=== PATIENT | male | born 1945 | race Caucasian/White ===

== ENCOUNTER 2017-09-02 19:25 | Inpatient (IN) | payer OTHER ==
[~2017-09-02] VITALS: Ht 185.4 cm; Wt 118.4 kg
[2017-09-02 19:25] VITALS: BP 142/73
[~2017-09-02 19:25] MED LIST: APAP650 PO; ASPIR 8181 MG PO; ASPIRIN325; CALCIUM 500 +1 EAC5 PO; CARDIZEM60 MG PO; CIPRO500 M1 PO; COUMADIN 5 MG TA5 M1 PO; FLUOXETINE20 MG/5 M1 PO; HYTRIN 5 M5 MG/1 CAP PO; JEVITY1000 M1 PO; LASIX 20 MG TAB20 MG PO; LINZESS145 MCG PO; LISINOPRIL40 MG; LISINOPRIL5 MG PO; LOPRESSOR100 M1 PO; METFORMIN HCL500 MG PO; MICONAZOLE 324 GM TOP; NEXIUM40 MG PO; NIVEA192 GM TP; PLAVIX 75 MG TA75 M1 PO; PROVIGIL 200 M200 M1 PO; SENOKOT-S1 TA1 PO; TOPROL XL100 MG; TOPROL XL100 MG PO; TOPROL XL50 MG; TUBERSOL1 ML/1 VIA ID; VITAMIN D400 UNI4
[2017-09-02 19:53] LABS: URINE BILIRUBIN NEGATIVE (Negative); URINE BLOOD 3+ (Negative); URINE CLARITY CLOUDY; URINE GLUCOSE-RANDOM NEGATIVE (Negative); URINE KETONES NEGATIVE (Negative); URINE PROTEIN 2+ (Negative); URINE UROBILINOGEN 0.2 E.U./dl (0.2-1.0)
[2017-09-02 20:08] LABS: URINE COLOR YELLOW; URINE LEUKOCYTES-REFLEX 2+ (Negative); URINE NITRITE-REFLEX POSITIVE (Negative)
[2017-09-02 20:13] LABS: ABSOLUTE EOSINOPHILS 0.3 thou/uL (0.0-0.7); ABSOLUTE MONOCYTES 0.8 thou/uL (0.0-1.2); ABSOLUTE NEUTROPHILS 6.8 thou/uL (1.6-8.1); BASOPHILS 0.5 %; EOSINOPHILS 3.1 %; HEMATOCRIT 41.3 % (42.0-52.0); HEMOGLOBIN 13.8 gm/dL (14.0-18.0); LYMPHOCYTES 10.8 %; MCHC 33.4 g/dL (28.0-37.0); MCV 92.6 fL (80.0-100.0); MONOCYTES 9.1 %; MPV 7.6 fl. (7.2-11.1); NUCLEATED RBCS 0 /100WBC; PLATELET COUNT* 180 thou/uL (150-400); POLYS 76.5 %; RBC 4.46 mil/uL (4.50-6.00); RDW-CV 14.6 % (10.5-14.5); WBC 8.9 thou/uL (4.0-11.0)
[2017-09-02 20:19] LABS: SQUAMOUS 0-3 Few /LPF (0-3)
[2017-09-02 20:20] LABS: CASTS None Seen /LPF (None Seen); MUCUS 4-6 Moderate strn/LPF (None Seen); WBC CLUMPS Few (None Seen)
[2017-09-02 20:21] LABS: AMORPHOUS PHOSPHATES Moderate /LPF (None Seen); TRIPLE PHOSPHATE CRYSTALS >10 Many /LPF (None Seen)
[2017-09-02 20:24] LABS: INR 1.1; PROTIME 10.7 Seconds (9.20-11.50)
[2017-09-02 20:30] LABS: ANION GAP 5 mmol/L (7-16); BUN 15 mg/dL (7-18); CALCIUM 8.7 mg/dL (8.5-10.1); CHLORIDE 105 mmol/L (98-107); CO2 31 mmol/L (21-32); GLUCOSE 94 mg/dL (70-99); POTASSIUM 4.4 mmol/L (3.5-5.1); SODIUM 141 mmol/L (136-145)
[2017-09-02 20:41] LABS: ALBUMIN 3.2 g/dL (3.4-5.0); ALKALINE PHOSPHATASE 119 U/L (46-116); LIPASE 153 U/L (73-393); NT-PRO BRAIN NAT PEPTIDE 907 pg/mL (<300); SGOT 16 U/L (15-37); SGPT 15 U/L (30-65); TOTAL BILIRUBIN 0.4 mg/dL (<0.1-1.0); TOTAL PROTEIN 7.5 g/dL (6.4-8.2); TROPONIN-I LEVEL <0.06 ng/mL (<0.06)
[2017-09-02 22:00] VITALS: BP 139/82
[2017-09-02 22:35] VITALS: BP 141/54
[2017-09-02] MEDS ORDERED: PROTONIX40 M1 PO (23:41)
[2017-09-02] MEDS ORDERED: TYLENOL EXTRA500 MG PO (23:45)
[2017-09-02] MEDS ORDERED: ZYRTEC10 M5 PO (23:45)
[2017-09-02] MEDS ORDERED: LIORESAL 10 MG10 MG PO (23:46)
[2017-09-02] MEDS ORDERED: ELIQUIS5 MG PO (23:46)
[2017-09-02] MEDS ORDERED: VITAMIN C500 M1 PO (23:47)
[2017-09-02] MEDS ORDERED: NEURONTIN 300300 M1 PO (23:47)
[2017-09-02] MEDS ORDERED: CRANBERRY500 M2 PO (23:48)
[2017-09-03 04:11] VITALS: BP 117/77
[2017-09-03 05:26] LABS: HEMATOCRIT 38.3 % (42.0-52.0); HEMOGLOBIN 12.5 gm/dL (14.0-18.0); MCH 30.3 pg (26.0-34.0); MCHC 32.7 g/dL (28.0-37.0); MCV 92.9 fL (80.0-100.0); MPV 7.8 fl. (7.2-11.1); RBC 4.12 mil/uL (4.50-6.00); RDW-CV 14.6 % (10.5-14.5); WBC 7.5 thou/uL (4.0-11.0)
[2017-09-03 05:40] LABS: CALCIUM 8.8 mg/dL (8.5-10.1); CREATININE 0.8 mg/dL (0.6-1.3); MAGNESIUM 1.8 mg/dL (1.8-2.4); POTASSIUM 4.1 mmol/L (3.5-5.1)
[2017-09-03 08:00] VITALS: BP 130/58
[2017-09-03 11:56] VITALS: BP 116/63
--- NOTE | 2017-09-03 12:22 | EKG ---
[place] [address] ELECTROCARDIOGRAM REPORT Name: ALFONZO MAR Room: [address] ADM IN M.R.#: [id number] Admission: 09/02/17 Attend Phys: Fareed Staley, Discharge: Date of : 43 Report #: [id number] THIS REPORT FOR: //name// [facility] ED Test Date: 2017-09-02 Test Time: 19:33:58 Pat Name: ALFONZO MAR Department: Room: [facility] Gender: M Data Processing Manager: KRISTINE : 1945 Requested By: Liudmila Aguiar Order Number: [id number] MD: Michel Webber Measurements Intervals [place] Rate: 64 P: ID: QRS: -24 QRSD: 96 T: 23 QT: 443 QTc: 457 Interpretive Statements Atrial fibrillation Borderline left axis deviation Nonspecific T abnormalities, anterior leads Compared to ECG 04/30/2016 13:35:05 Prolonged QT interval no longer present Electronically Signed On 09-03-2017 12:21:57 [employer] OBSERV[employer] by Michel Webber [email or web address] <ELECTRONICALLY SIGNED> By: Michel Webber MD, [facility] 09/03/17 1221 [id number] Michel Webber MD, [facility] /EPI
[2017-09-03 16:00] VITALS: BP 109/71
[2017-09-03 16:57] LABS: INR 1.2; PROTIME 11.3 Seconds (9.20-11.50)
[2017-09-03 20:00] VITALS: BP 127/70
[2017-09-04] VITALS (7 sets, daily range): BP systolic 91–156; BP diastolic 58–95
[2017-09-04 05:16] LABS: HEMATOCRIT 36.9 % (42.0-52.0); HEMOGLOBIN 12.2 gm/dL (14.0-18.0); MCH 30.8 pg (26.0-34.0); MCHC 33.1 g/dL (28.0-37.0); MPV 7.7 fl. (7.2-11.1); RBC 3.97 mil/uL (4.50-6.00); RDW-CV 14.8 % (10.5-14.5); WBC 6.3 thou/uL (4.0-11.0)
[2017-09-04 05:29] LABS: INR 1.2; PROTIME 11.2 Seconds (9.20-11.50)
[2017-09-04 05:47] LABS: CALCIUM 8.7 mg/dL (8.5-10.1); CREATININE 0.9 mg/dL (0.6-1.3); MAGNESIUM 1.8 mg/dL (1.8-2.4); POTASSIUM 4.4 mmol/L (3.5-5.1)
[2017-09-05] VITALS (7 sets, daily range): BP systolic 111–159; BP diastolic 64–87
[2017-09-05 04:36] LABS: INR 1.2; PROTIME 11.4 Seconds (9.20-11.50)
[2017-09-05] MEDS ORDERED: CEFUROXIME250 MG PO (15:14)
== END 2017-09-05 17:45 | disposition home health service (06) | DRG 871 ==
LOC: M.ERS 19:25 → M.TBA-ER 21:01 → M.2W 21:01
PROVIDERS: Emergency Medicine; ADMIT Family Medicine
DX: A41.9 Sepsis, unspecified organism (principal); G93.41 Metabolic encephalopathy; N39.0 Urinary tract infection, site not specified; I10 Essential (primary) hypertension; I25.10 Atherosclerotic heart disease of native coronary artery without angina pectoris; I48.91 Unspecified atrial fibrillation; K21.9 Gastro-esophageal reflux disease without esophagitis; G83.9 Paralytic syndrome, unspecified; Z86.73 Personal history of transient ischemic attack (TIA), and cerebral infarction without residual deficits; Z88.8 Allergy status to other drugs, medicaments and biological substances; Z91.040 Latex allergy status; Z83.49 Family history of other endocrine, nutritional and metabolic diseases; Z79.899 Other long term (current) drug therapy

== ENCOUNTER 2017-09-13 12:16 | Inpatient (IN) | payer OTHER ==
[~2017-09-13] VITALS: Ht 182.9 cm; Wt 113.4 kg
[~2017-09-13 12:16] MED LIST changes: +CEFUROXIME250 MG PO; +CRANBERRY500 M2 PO; +ELIQUIS5 MG PO; +LIORESAL 10 MG10 MG PO; +NEURONTIN 300300 M1 PO; +PROTONIX40 M1 PO; +TYLENOL EXTRA500 MG PO; +VITAMIN C500 M1 PO; +ZYRTEC10 M5 PO
[2017-09-13 12:48] LABS: ABSOLUTE EOSINOPHILS 0.3 thou/uL (0.0-0.7); ABSOLUTE MONOCYTES 0.7 thou/uL (0.0-1.2); ABSOLUTE NEUTROPHILS 4.5 thou/uL (1.6-8.1); BASOPHILS 0.5 %; HEMATOCRIT 38.6 % (42.0-52.0); HEMOGLOBIN 12.7 gm/dL (14.0-18.0); LYMPHOCYTES 14.9 %; MCH 30.7 pg (26.0-34.0); MONOCYTES 11.3 %; MPV 7.7 fl. (7.2-11.1); NUCLEATED RBCS 0 /100WBC; PLATELET COUNT* 187 thou/uL (150-400); POLYS 69.3 %; RBC 4.15 mil/uL (4.50-6.00); RDW-CV 15.1 % (10.5-14.5); WBC 6.5 thou/uL (4.0-11.0)
[2017-09-13 12:54] LABS: URINE BILIRUBIN NEGATIVE (Negative); URINE BLOOD 3+ (Negative); URINE CLARITY SL CLOUDY; URINE COLOR YELLOW; URINE GLUCOSE-RANDOM TRACE (Negative); URINE KETONES NEGATIVE (Negative); URINE PROTEIN 3+ (Negative)
[2017-09-13 12:55] LABS: URINE LEUKOCYTES-REFLEX 3+ (Negative); URINE NITRITE-REFLEX POSITIVE (Negative)
[2017-09-13 12:57] LABS: ANION GAP 1 mmol/L (7-16); BUN 13 mg/dL (7-18); CALCIUM 9.3 mg/dL (8.5-10.1); CHLORIDE 106 mmol/L (98-107); CO2 34 mmol/L (21-32); CREATININE 0.8 mg/dL (0.6-1.3); GLUCOSE 79 mg/dL (70-99); SODIUM 141 mmol/L (136-145)
[2017-09-13 13:00] LABS: CASTS None Seen /LPF (None Seen); MUCUS None Seen strn/LPF (None Seen); SQUAMOUS 0-3 Few /LPF (0-3); URINE WBC-REFLEX >25 Many /HPF (0-5)
[2017-09-13 13:01] LABS: CRYSTALS None Seen /LPF (None Seen)
[2017-09-13 13:04] LABS: ALBUMIN 3.1 g/dL (3.4-5.0); ALKALINE PHOSPHATASE 109 U/L (46-116); LIPASE 131 U/L (73-393); SGOT 27 U/L (15-37); SGPT 14 U/L (30-65); TOTAL BILIRUBIN 0.6 mg/dL (<0.1-1.0); TROPONIN-I LEVEL <0.06 ng/mL (<0.06)
[2017-09-13 13:05] LABS: POTASSIUM 5.7 mmol/L (3.5-5.1)
[2017-09-13 16:23] VITALS: BP 135/97
--- NOTE | 2017-09-13 19:43 | NUR ---
PATIENT A&OX1-3, UNABLE TO FULLY ASSESS ORIENTATION PATIENT IS UNABLE TO VERBALIZE. PATIENT RESPONDS WELL WHEN ASKED YES OR NO QUESTIONS. COMUNICATES VERBALY MOSTLY WITH MAONING OR DIRECT ANSWERS. PATIENT WAS ADM TO FLOOR AT 1630 REPORT TAKEN FROM GEOR[place]IA CASIANO IN ER. AGREE WITH ASSESSMENT, DOCUMENTED AND COMPLETED. ON ROOM AIR, IV LEFT HAND, FLUIDS INFUSSING. SUPRAPUBIC CATHETER DRAINING WELL, NICE OUTPUT. C/O GENERALIZED PAIN, RELIEF WITH MEDICATION. NO OTHER CONCERNS AT THIS TIME. APPROPRIATE AND COOPORATIVE WITH CARE.
[2017-09-13 20:15] VITALS: BP 109/71
--- NOTE | 2017-09-14 05:26 | NUR ---
PT IS ABLE TO COMMUNICATE HIS NEEDS TO STAFF WITH MINOR DIFFICULTY; HE HAS SOME EXPRESIVE APHASIA FROM A PREVIOUS CVA AND CAN BE A LITTLE HARD TO UNDERSTAND AT TIMES; HE DOES BEST WITH "YES OR NO" TYPE QUESTIONS. HE HAS DENIED THE NEED FOR PAIN MEDICATION UP TO THIS TIME. SUPRAPUBIC CATHETER IS PATENT. UROLOGY CONSULT JILLIAN.
[2017-09-14 08:08] LABS: HEMATOCRIT 36.1 % (42.0-52.0); HEMOGLOBIN 11.8 gm/dL (14.0-18.0); MCH 30.6 pg (26.0-34.0); MCHC 32.8 g/dL (28.0-37.0); MCV 93.3 fL (80.0-100.0); MPV 7.6 fl. (7.2-11.1); RBC 3.87 mil/uL (4.50-6.00); RDW-CV 15.2 % (10.5-14.5); WBC 6.5 thou/uL (4.0-11.0)
[2017-09-14 08:19] VITALS: BP 110/70
[2017-09-14 08:20] LABS: CALCIUM 8.8 mg/dL (8.5-10.1); CREATININE 0.9 mg/dL (0.6-1.3); MAGNESIUM 1.7 mg/dL (1.8-2.4)
[2017-09-14 08:21] LABS: POTASSIUM 4.2 mmol/L (3.5-5.1)
[2017-09-14 13:04] VITALS: BP 117/95
[2017-09-14 16:35] VITALS: BP 119/63
--- NOTE | 2017-09-14 16:42 | NUR ---
SW met with pt to complete initial assessment, introduce self, and SW role. Pt lives at home alone with dtr support. Pt did not express any needs at this time. SW to continue to follow to assist with safe dc planning.
[2017-09-14 20:00] VITALS: BP 115/55
--- NOTE | 2017-09-14 20:23 | NUR ---
ASSUMED CARES OF PT AT 0700. PT IN BED ASLEEP, BED IN LOW AND LOCKED POSITION, CALL BUTTON AND PERSONAL ITEMS IN PT REACH. FALL PRECAUTIONS IN PLACE. PT A&O X3, EXPRESSIVE APHASIA R/T PAST CVA, RIGHT SIDED WEAKNESS, CHRONIC AFIB, VSS ON RA, LUNG SOUNDS DIMINISHED/SHALLOW/DISTANT OCC. WHEEZE. SP CATH IN PLACE, ORANGE TINTED CLEAR URINE. PT USES CALL BUTTON APPROPRIATELY. OCC. BLADDER SPASMS VERY PAINFUL, MEDICATION ORDERED NEEDED FOR SPASMS. +2 EDEMA LE, FLOAT ON PILLOWS. PT APPROPRIATE IN ANSWERING YES/NO QUESTIONS, ACCURATE. IV IN LEFT HAND/WRIST/22 GAUGE PATENT TO FLUIDS/FLUSH. CRUSH MEDS IN CHOCOLATE PUDDING, SMALL BITES, THIN LIQUIDS OK'D. UROLOGY CONSULTED. SP CATH CHANGED PER UROLOGY REQUEST 18 LITHU[place]IAN. CLEAR YELLOW URINE NOTICED. HOURLY ROUNDING AND Q2 TURNS COMPLETED. PT FEED ASSIST. AFEBRILE, PT DENIES PAIN. PT PROGRESSING TOWARDS GOAL. NURSING STUDENTS GAVE BED BATH TODAY. PRESENTLY SLEEPING IN BED, REPORT TO LOAF COUNTER FOR CONTINUED CARES.
[2017-09-14] MEDS ORDERED: B & O SUPPRETT1 EAC1 RECTAL (21:51)
[2017-09-15 00:27] VITALS: BP 123/62
[2017-09-15 04:36] LABS: ABSOLUTE EOSINOPHILS 0.3 thou/uL (0.0-0.7); ABSOLUTE LYMPHOCYTES 1.1 thou/uL (0.8-5.3); ABSOLUTE MONOCYTES 0.7 thou/uL (0.0-1.2); ABSOLUTE NEUTROPHILS 3.9 thou/uL (1.6-8.1); BASOPHILS 0.5 %; EOSINOPHILS 4.7 %; HEMATOCRIT 36.6 % (42.0-52.0); HEMOGLOBIN 11.9 gm/dL (14.0-18.0); MCHC 32.6 g/dL (28.0-37.0); MCV 95.1 fL (80.0-100.0); MONOCYTES 11.1 %; MPV 7.7 fl. (7.2-11.1); NUCLEATED RBCS 0 /100WBC; PLATELET COUNT* 154 thou/uL (150-400); POLYS 65.7 %; RBC 3.85 mil/uL (4.50-6.00); RDW-CV 15.6 % (10.5-14.5); WBC 5.9 thou/uL (4.0-11.0)
[2017-09-15 04:48] LABS: ALBUMIN 2.7 g/dL (3.4-5.0); CALCIUM 8.6 mg/dL (8.5-10.1); CREATININE 0.9 mg/dL (0.6-1.3); TOTAL BILIRUBIN 0.5 mg/dL (<0.1-1.0); TOTAL PROTEIN 6.1 g/dL (6.4-8.2)
--- NOTE | 2017-09-15 05:19 | NUR ---
PT SLEPT SOUNDLY DURING THE NIGHT, SUPRAPUBIC CATH IN PLACE, PLEASANT, IV ANTIBIOTICS GIVEN, PT TURNED, PRN BLADDER SPASM MEDICATION GIVEN FOR BLADDER PAIN, CALL LIGHT IN REACH, BED ALARM ON FOR SAFETY, WILL CONTINUE TO MONITOR
[2017-09-15 07:47] VITALS: BP 131/83
[2017-09-15 08:00] VITALS: BP 131/83
--- NOTE | 2017-09-15 09:52 | NUR ---
SW called pt dtr Mag and clarified that yes, pt does in fact live with pt at home...SW had previously gathered that pt lived alone now but that is incorrect. Pt lives at home with and pt dtr assists in pt care. Pt dtr explained that pt will receive a bigger wc soon (since pt gained weight after no longer on tube feeding and eating regular diet) and pt also has a noelle lift at home. Pt/family may need assist in coordinating wc van home preference [facility] at dc. SW to continue to follow to assist with safe dc planning.
--- NOTE | 2017-09-15 11:17 | NUR ---
ASSUMED CARES. ASSESSMENT PEFORMED AND DOCUMENTED. PT IS ALERT AND ABLE TO RESPOND TO YES NO QUESTIONS. OTHER SPEECH IS DIFFICULT TO UNDERSTAND, THIS IS PT NORMAL. DENIES PAIN, DENIES NEEDS. SUPRAPUBIC CATHETER DD YELLOW. FALL PRECUATIONS IN PLACE. IV ABX RUNNING. CALL LIGHT IN REACH AND BED IN LOWEST AND LOCKED POSITION. WILL CONTINUE WITH PLAN OF CARE
[2017-09-15 14:21] VITALS: BP 134/86
[2017-09-15 16:10] VITALS: BP 127/69
--- NOTE | 2017-09-15 18:05 | NUR ---
ASSUMED CARE OF PT AT APPROXIMATELY 1645. REPORT RECEIVED FROM [place]. FAMILY AT BEDSIDE WITH PT THROUGHOUT AFTERNOON. PT GIVEN PO CARDIZEM AND IV ZOSYN. DENIES ANY PAIN OR SHORTNESS OF BREATH. ASPHASIA NOTED. ON RA SAT UPPER 90'S. PT REQUIRES ASSIST WITH MEALS. MEDICAL SURGICAL STATUS. MEDICATIONS PER OCT. PT REPOSITIONED EVERY 2 HOURS FOR COMFORT. SUPRAPUBIC CATHETER TO DEPENDENT DRAINAGE. HOURLY ROUNDING OBSERVED. BED IN LOW POSITION. BED ALARM IN PLACE. FALL PRECAUTIONS IN PLACE. CALL LIGHT WITHIN REACH. WILL CONTINUE PLAN OF CARE.
[2017-09-15 20:10] VITALS: BP 136/78
[2017-09-16] VITALS: BP 149/86
--- NOTE | 2017-09-16 05:19 | NUR ---
PT SLEPT SOUNDLY DURING THE NIGHT, IV ANTIBIOTICS GIVEN, PT TURNED, HEELS OFF OF BED, RIGHT ARM ON PILLOW, SUPRAPUBIC CATH IN PLACE, PLEASANT, TOOK MEDS IN PUDDING, CALL LIGHT IN REACH, BED ALARM ON FOR SAFETY, WILL CONTINUE TO MONITOR
[2017-09-16 09:00] VITALS: BP 136/80
--- NOTE | 2017-09-16 09:39 | NUR ---
If Pt discharges to home over the weekend, family normally uses [facility], please confirm with that they wish to use [facility], and contact [facility] to arrange dc transportation [phone]
[2017-09-16 12:25] VITALS: BP 140/66
[2017-09-16 15:56] VITALS: BP 141/90
--- NOTE | 2017-09-16 17:33 | NUR ---
PATIENT HAS BEEN A/O THIS SHIFT, NOTED TO HAVE APHASIA FROM PREVIOUS CVA. PATIENT TURNED EVERY 2 HOURS AND HEELS ELEVATED. PATIENT WITH SUPRAPUBIC CATHETER IN PLACE, DRAINING YELLOW URINE. CATHETER CARE GIVEN THIS SHIFT. PATIENT TOLERATING DIET. TAKES PILLS CRUSHED IN PUDDING. VITALS STABLE ON ROOM AIR. URINE CULTURE RESULTED BACK AND PHYSICIAN NOTIFIED. PATIENT PLACED IN CONTACT ISOLATION FOR ESBL. PICC NURSE HERE THIS AFTERNOON, UNABLE TO PLACE PICC LINE. FAMILY UPDATED. HOURLY ROUNDING COMPLETED THIS SHIFT. CALL LIGHT WITHIN REACH. WILL CONTINUE WITH PLAN OF CARE.
--- NOTE | 2017-09-16 18:51 | NUR ---
CONSULTED TO PLACE PICC PER DR VEGAS ORDER. CONSENT OBTAINED FROM FAMILY MEMBERS AT BEDSIDE. RISK FOR INFECTION WELL DVT EXPLAINED TO FAMILY. PT ASSESSED WITH ULTRASOUND AND EDGAR CEPHALIC FOUND TO BE WIDELY PATENT. LINE TRIMMED TO 45 CM AND PLACED PER HOSPITAL POLICY. UNABLE TO DROP LINE INTO POSITION, SECOND ATTEMPT ON LEFT SIDE. LINE TRIMMED TO 50 CM AND PLACED WITH 3CM EXT, CXR TO CONFIRM PLACEMENT, AWAITING RESULTS.
[2017-09-16 20:30] VITALS: BP 134/71
--- NOTE | 2017-09-17 05:30 | NUR ---
PT SLEPT ON AND OFF THROUGH NIGHT. ASSESSMENT DOCUMENTED. MEDS GIVEN PER E-MAR. PICC PATENT. PT HAD NO REPORTS OF PAIN. PT REPOSITIONED THROUGH NIGHT. PILLS CRUSHED AND GIVEN WITH PUDDING. ISOLATION MAINTAINED. NO CONCERNS AT THIS TIME.
[2017-09-17 08:00] VITALS: BP 139/76
[2017-09-17 16:34] VITALS: BP 132/78
--- NOTE | 2017-09-17 19:21 | NUR ---
PATIENT HAS BEEN ALERT TO PERSON THIS SHIFT, APHASIC. ABLE TO ANSWER YES/NO QUESTIONS. IV TO LEFT HAND DC'D. DOUBLE LUMEN PICC LINE IN PLACE TO LEFT UPPER ARM. CONTINUES ON IV ANTIBIOTICS. MEDS CRUSHED IN PUDDING AND TOLERATING. ASSISTED WITH MEALS. TURNED EVERY 2 HOURS AND HEELS ELEVATED. CM CONSULTED FOR IV ANTIBIOTICS AT HOME. SUPRAPUBIC CATH IN PLACE, DRAINING YELLOW URINE. REMAINS IN CONTACT ISOLATION FOR ESBL IN URINE. HOURLY ROUNDING COMPLETED. CALL LIGHT WITHIN REACH. WILL CONTINUE WITH PLAN OF CARE.
[2017-09-17 20:30] VITALS: BP 129/77
--- NOTE | 2017-09-18 05:13 | NUR ---
PT SLEPT MOST OF SHIFT. ASSESSMENT DOCUMENTED. MEDS GIVEN PER E-MAR, CRUSHED IN PUDDING. PICC LINE PATENT. PT REPOSITIONED THROUGH NIGHT. CATHETER DRAINING. NO CONCERS AT THIS TIME.
[2017-09-18 10:00] VITALS: BP 143/87
[2017-09-18] MEDS ORDERED: MEROPENEM500 MG IV (14:09)
[2017-09-18 14:21] VITALS: BP 134/86
[2017-09-18 16:11] VITALS: BP 140/96
[2017-09-18] MEDS ORDERED: INVANZ1 GM IVPB (16:21)
--- NOTE | 2017-09-18 16:31 | NUR ---
ASSUMED CARES OF PT AT 0700. PT IN BED, BED IN LOW AND LOCKED POSITION, BED ALARM ON FOR PT SAFETY. FALL PRECAUTIONS IN PLACE. CALL BUTTON AND PERSONAL ITEMS IN PT REACH. PT A&O X3, EXPRESSIVE APHASIA R/T PAST CVA, RIGHT SIDED WEAKNESS, BEDREST, Q2 TURN, EDEMA ON RIGHT SIDE/HAND AND FOOT. FEET FLOATED WITH PILLOWS BILATERALLY. HRRR PER AUSCULTATION, VSS ON RA, SUPRAPUBIC CATH PATENT WITH CLEAR YELLOW URINE PRESENT. PICC LINE IN LEFT UE PATENT TO FLUIDS/FLUSH AND BLOOD DRAW. PT ANSWER YES/NO QUESTIONS ACCURATELY, OCC. VERBALIZES BIRTHDAY AND NAME PARTIALLY. TAKES MEDS CRUSHED IN CHOCOLATE PUDDING WELL, THIN LIQUIDS WELL TAKEN. PT PROGRESSING TOWARDS GOAL. PT CLEARED FOR D/C HOME TODAY WITH HOME HEALTH. CASE MANAGEMENT SCHEDULING HOME HEALTH CARES. WILL CONTINUE TO MONITOR PT. PREPARING FOR DISCHARGE.
--- NOTE | 2017-09-18 16:40 | NUR ---
[facility] called and faxed [facility] referral and IV abx information; [facility] spoke with Mariam ph [phone] and fax [phone]. Mariam checked benefits and accepted referral and confirmed that they will deliver medicine to pt [facility]. [facility]Y faxed referral, final orders, med list to pt preference of [facility] and [facility] called to confirm of acceptance and nurse to visit pt tomorrow. C[facility]Y discussed with pt dtr and SW to arrange transportation home.
[2017-09-18 16:56] VITALS: BP 134/86
[2017-09-18 18:20] VITALS: BP 134/86
--- NOTE | 2017-09-18 20:11 | NUR ---
PT CLEARED FOR DISCHARGE VIA TRANSPORT/CART. PT VSS ON DISCHARGE, DISCHARGE EDUCATION COMPLETED, STROKE EDUCATION COMPLETED. DAUGHTER SIGNED FOR PT ALL DISCHARGE FORMS. PT GOING HOME WITH HOME HEALTH FOR FURTHER IV ABT TREATMENT. PT ALERT, SMILING AT DISCHARGE WHICH WAS COMPLETED AT 1820 WITH DAUGHTER AT SIDE. ALL OF PT BELONGINGS PACKED, ROOM CHECKED, DAUGHTER CARRIED BELONGINGS WITH HER FOLLOWING TRANSPORT.
== END 2017-09-18 18:20 | disposition home health service (06) | DRG 698 ==
LOC: M.ERS 12:16 → M.TBA-ER 14:45 → M.3W 14:45
PROVIDERS: Emergency Medicine; Internal Medicine; ADMIT Internal Medicine
PROC: 02HV33Z Insertion of Infusion Device into Superior Vena Cava, Percutaneous Approach (ICD-10-PCS; principal; 2017-09-16)
PROC: B548ZZA Ultrasonography of Superior Vena Cava, Guidance (ICD-10-PCS; principal; 2017-09-16)
DX: T83.511A Infection and inflammatory reaction due to indwelling urethral catheter, initial encounter (principal); J18.9 Pneumonia, unspecified organism; E44.1 Mild protein-calorie malnutrition; I69.351 Hemiplegia and hemiparesis following cerebral infarction affecting right dominant side; Q60.0 Renal agenesis, unilateral; N13.30 Unspecified hydronephrosis; J98.11 Atelectasis; N40.0 Benign prostatic hyperplasia without lower urinary tract symptoms; N32.3 Diverticulum of bladder; N32.0 Bladder-neck obstruction; I48.91 Unspecified atrial fibrillation; I10 Essential (primary) hypertension; E87.5 Hyperkalemia; N21.0 Calculus in bladder; N30.90 Cystitis, unspecified without hematuria; B96.20 Unspecified Escherichia coli [E. coli] as the cause of diseases classified elsewhere; Z16.12 Extended spectrum beta lactamase (ESBL) resistance; B96.1 Klebsiella pneumoniae [K. pneumoniae] as the cause of diseases classified elsewhere; Z16.24 Resistance to multiple antibiotics; Y84.6 Urinary catheterization as the cause of abnormal reaction of the patient, or of later complication, without mention of misadventure at the time of the procedure; Z68.33 Body mass index [BMI] 33.0-33.9, adult; Y92.89 Other specified places as the place of occurrence of the external cause; I69.320 Aphasia following cerebral infarction; Z79.01 Long term (current) use of anticoagulants; Z79.899 Other long term (current) drug therapy; Z88.8 Allergy status to other drugs, medicaments and biological substances; Z91.040 Latex allergy status

== ENCOUNTER 2017-11-14 23:25 | Inpatient (IN) | payer OTHER ==
[~2017-11-14] VITALS: Ht 185.4 cm; Wt 117.9 kg
[~2017-11-14 23:25] MED LIST changes: +B & O SUPPRETT1 EAC1 RECTAL; +INVANZ1 GM IVPB; +MEROPENEM500 MG IV
[2017-11-14 23:26] VITALS: BP 103/67
[2017-11-15 00:27] LABS: ABSOLUTE LYMPHOCYTES 1.5 thou/uL (0.8-5.3); BASOPHILS 0.3 %; HEMOGLOBIN 11.4 gm/dL (14.0-18.0); MCV 88.5 fL (80.0-100.0); NUCLEATED RBCS 0 /100WBC; PLATELET COUNT* 185 thou/uL (150-400)
[2017-11-15 00:40] LABS: ABSOLUTE EOSINOPHILS 0.1 thou/uL (0.0-0.7); ABSOLUTE MONOCYTES 1.5 thou/uL (0.0-1.2); ABSOLUTE NEUTROPHILS 11.9 thou/uL (1.6-8.1); EOSINOPHILS 0.9 %; HEMATOCRIT 35.5 % (42.0-52.0); MCH 28.4 pg (26.0-34.0); MCHC 32.1 g/dL (28.0-37.0); MONOCYTES 9.9 %; MPV 7.8 fl. (7.2-11.1); POLYS 78.9 %; RBC 4.01 mil/uL (4.50-6.00); RDW-CV 15.4 % (10.5-14.5); WBC 15.1 thou/uL (4.0-11.0)
[2017-11-15 00:48] LABS: URINE BLOOD 2+ (Negative); URINE CLARITY CLOUDY; URINE COLOR YELLOW; URINE GLUCOSE-RANDOM NEGATIVE (Negative); URINE KETONES NEGATIVE (Negative); URINE NITRITE-REFLEX NEGATIVE (Negative); URINE PROTEIN 1+ (Negative); URINE SPECIFIC GRAVITY <= 1.005 (1.005-1.030); URINE UROBILINOGEN 0.2 E.U./dl (0.2-1.0)
[2017-11-15 00:49] LABS: URINE BILIRUBIN 1+ (Negative); URINE LEUKOCYTES-REFLEX 2+ (Negative)
[2017-11-15 00:49] LABS: ANION GAP 6 mmol/L (7-16); BUN 13 mg/dL (7-18); CALCIUM 8.8 mg/dL (8.5-10.1); CHLORIDE 106 mmol/L (98-107); CO2 27 mmol/L (21-32); CREATININE 0.9 mg/dL (0.6-1.3); GLUCOSE 102 mg/dL (70-99); POTASSIUM 4.1 mmol/L (3.5-5.1); SODIUM 139 mmol/L (136-145)
[2017-11-15 00:52] LABS: ALBUMIN 2.6 g/dL (3.4-5.0); ALKALINE PHOSPHATASE 114 U/L (46-116); SGOT 11 U/L (15-37); SGPT 12 U/L (30-65); TOTAL BILIRUBIN 0.7 mg/dL (<0.1-1.0); TOTAL PROTEIN 6.4 g/dL (6.4-8.2); TROPONIN-I LEVEL <0.06 ng/mL (<0.06)
[2017-11-15] MEDS ORDERED: CETIRIZINE HCL10 MG (00:56)
[2017-11-15 01:18] LABS: CASTS None Seen /LPF (None Seen); SQUAMOUS NONE SEEN /LPF (0-3)
[2017-11-15 01:19] LABS: BACTERIA-REFLEX >30 Many /HPF (None Seen); CALCIUM OXALATE 0-3 Few /LPF (None Seen); URINE RBC 3-10 Few /HPF (0-2); URINE WBC-REFLEX 6-15 Few /HPF (0-5)
[2017-11-15 01:20] LABS: TRIPLE PHOSPHATE CRYSTALS 4-10 Moderate /LPF (None Seen)
--- NOTE | 2017-11-15 01:41 | NUR ---
REPORT GIVEN TO FLOOR NURSE.
[2017-11-15 01:47] VITALS: BP 113/77
[2017-11-15 02:01] LABS: ICTOTEST (BILI CONFIRMATORY) Negative (Negative)
[2017-11-15 02:30] VITALS: BP 92/62
[2017-11-15] MEDS ORDERED: CLARITIN10 MG PO (02:42)
[2017-11-15] MEDS ORDERED: LOPRESSOR100 M1 PO (02:43)
--- NOTE | 2017-11-15 04:27 | NUR ---
PT ADMIT TO 230 AT 0230. ALERT EXPRESIVE APHASIA WITH R SIDED WEAKNESS FROM PREVIOUS CVA. SUPRA PUBIC CATH IN PLACE DRAINING CLOUDY YELLOW. TURN Q 2 HRS. PT SOILED UPON ARRIVEL TO FLOOR. NS AT 100MLS HR TO L HAND 22. PT MED SURG STATUS. WILL CONTINUE TO MONITOR.
[2017-11-15 08:00] VITALS: BP 103/60
[2017-11-15] MEDS ORDERED: LEVSIN0.125 MG SUBLING (08:00)
--- NOTE | 2017-11-15 10:16 | EKG ---
[place] [address] ELECTROCARDIOGRAM REPORT Name: ALFONZO MAR Room: [address] ADM IN .R.#: [id number] Admission: 11/15/17 Attend Phys: Lillie Lockwood Discharge: Date of : 43 Report #: [id number] THIS REPORT FOR: //name// [facility] ED Test Date: 2017-11-14 Test Time: 23:31:58 Pat Name: ALFONZO MAR Department: Room: [facility] Gender: M Guitar Repairer: ETHEL Brennan : 1945 Requested By: Girish Keyes Order Number: [id number] MD: Michel Webber Measurements Intervals [place] Rate: 99 P: [place]: QRS: 100 QRSD: 112 T: 145 QT: 338 QTc: 434 Interpretive Statements Atrial fibrillation Abnormal T, consider ischemia, anterior leads Compared to ECG 09/02/2017 19:33:58 T-wave abnormality still present Electronically Signed On 11-15-2017 10:16:13 CDT by Michel Webber [email or web address] <ELECTRONICALLY SIGNED> By: Michel Webber MD, [facility] 11/15/17 1016 [id number] Michel Webber MD, [facility] /EPI
--- NOTE | 2017-11-15 14:29 | NUR ---
PT UNCOMFORTABLE, NIECE RADHA AT BEDSIDE, STATES WILL BE HERE LATER. PER OLD RECORDS, PT LIVES WITH . DTR/FATEMEH ASSISTS AND PER RADHA IS MOVING IN WITH THEM. PT HAS HAX OF CVA, SP CATH, USES W/C AND DELFINA LIFT. HAS HAD HH WITH [facility] IN THE PAST AND DONE IV ANTIBX AT HOME IN [place]. WILL TRY TO TALK WITH LATER
[2017-11-15 16:24] VITALS: BP 98/56
--- NOTE | 2017-11-15 17:25 | EKG ---
[place] [address] ELECTROCARDIOGRAM REPORT Name: ALFONZO MAR Room: [address] ADM IN M.R.#: [id number] Admission: 11/15/17 Attend Phys: Lillie Lockwood Discharge: Date of : 43 Report #: [id number] THIS REPORT FOR: //name// [facility] ED Test Date: 2017-11-14 Test Time: 23:32:49 Pat Name: ALFONZO MAR Department: Room: [address] Gender: M Kinesiology Professor: ETHEL Brennan : 1945 Requested By: Girish eKyes Order Number: [id number] Patria MD: Michel Webber Measurements Intervals [place] Rate: 83 P: [place]: QRS: 90 QRSD: 106 T: 160 QT: 351 QTc: 413 Interpretive Statements Atrial fibrillation Borderline right axis deviation Abnormal T, consider ischemia, anterior leads Compared to ECG 11/14/2017 23:31:58 No significant changes Electronically Signed On 11-15-2017 17:25:06 CDT by Michel Webber [email or web address] <ELECTRONICALLY SIGNED> By: Michel Webber MD, [facility] 11/15/17 1725 233 [id number] Michel Webber MD, [facility] /EPI
[2017-11-15 20:00] VITALS: BP 105/62
--- NOTE | 2017-11-15 20:00 | NUR ---
pts suprapubic catheter replaced this evening. pt tolerated it well. pts vss today. afebrile. pt appeard to have some trouble eating/drinking, with coughing. pt was given soft foods for dinner and was assisted, he did do better. ST consut placed. pt turned q 2 hrs. excoriation to buttock noted, wound consult placed, pictures taken. pts family here this afternoon, updated on plan of care by Dr Umana. fall precautions in place. call light in reach. pt does not attempt to use it. report given to oncoming rnvijay.
--- NOTE | 2017-11-16 03:37 | NUR ---
Patient rested in bed, no acute changes. Patient did not show signs of distress. Patient positive for c. diff. Patient to continue treatment. Patient will be monitor for further changes. Call light within reach, bed in low ponsition, fall precuations in place, patient turned Q2 hours, bed alarm on.
[2017-11-16 04:00] VITALS: BP 101/84
[2017-11-16 05:00] LABS: ABSOLUTE EOSINOPHILS 0.2 thou/uL (0.0-0.7); ABSOLUTE LYMPHOCYTES 1.4 thou/uL (0.8-5.3); ABSOLUTE NEUTROPHILS 5.7 thou/uL (1.6-8.1); BASOPHILS 0.6 %; EOSINOPHILS 2.7 %; HEMOGLOBIN 10.7 gm/dL (14.0-18.0); LYMPHOCYTES 16.6 %; MCH 28.6 pg (26.0-34.0); MCHC 32.5 g/dL (28.0-37.0); MONOCYTES 12.5 %; MPV 7.7 fl. (7.2-11.1); NUCLEATED RBCS 0 /100WBC; PLATELET COUNT* 154 thou/uL (150-400); POLYS 67.6 %; RBC 3.75 mil/uL (4.50-6.00); RDW-CV 15.3 % (10.5-14.5); WBC 8.4 thou/uL (4.0-11.0)
[2017-11-16 05:05] LABS: CALCIUM 8.8 mg/dL (8.5-10.1); CREATININE 0.8 mg/dL (0.6-1.3); POTASSIUM 3.8 mmol/L (3.5-5.1)
[2017-11-16 09:00] VITALS: BP 120/62
--- NOTE | 2017-11-16 11:00 | NUR ---
ASSUMED PT CARE AT 0730, FULL ASSESMENT DONE CHARTED. PT ORIENTED TO SELF, IS NOT ABLE TO VERBALIZE IF HE IS OTHERWISE ORIENTED. PT WILL ANSWER YES/NO TO QUESTIONS. HE DENIES PAIN. VSS, M/S STATUS. PT INCONT OF BOWEL, SUPERPUBIC CATHETER IN PLACE DRAINING YELLOW URINE. PT TURNED Q 2 HR. TAKES MEDS CRUSED IN APPLESAUCE. ATE 30% OF BREAKFAST. FALL PRECATUIONS IN PLACE. CALL LIGHT IN REACH. WILL CONTINUE WITH PLAN OF CARE.
--- NOTE | 2017-11-16 12:58 | CON ---
[address] [address] CONSULTATION Name: ALFONZO MAR Room: [address] IN M.R.#: [id number] Admission: 11/15/17 Attend Phys: Lillie Lockwood Discharge: Date of : 43 Report #: [id number] THIS REPORT FOR: //name// CC: [facility] physician/PCP Agusto Claudio DATE OF SERVICE: 11/15/2017 ATTENDING PHYSICIAN: Agusto Claudio DO REASON FOR EVALUATION: Complicated urinary tract infection, diarrheal disease, question C. diff colitis. HISTORY OF PRESENT ILLNESS: Chart reviewed, patient examined. This is a 72-year-old who I am familiar with, previous history of stroke, has some speech deficits. He has known obstructive uropathy. He has got a solitary kidney, recurrent urinary tract infections. He was hospitalized in September of this year, isolated multiple resistant Klebsiella pneumoniae including ESBL. He was discharged on carbapenem. Apparently, he was noted to have increasing urinary discomfort with some malodor, was febrile, ultimately developed some diarrhea over the course of last few hours prior to admission, which has been new for him. It is difficult to understand often due to his speech difficulties and was noted to have some low-grade temperature elevations, so empirically started on piperacillin/tazobactam, given a single dose of Levaquin. Urine culture in progress. Blood cultures pending as well as a C. diff toxin on the stool. ALLERGIES: LISTED TO ATORVASTATIN AND LATEX. CURRENT MEDICATIONS: Include levofloxacin, apixaban, Zosyn, gabapentin, fluoxetine, lansoprazole, hyoscyamine, metoprolol, baclofen, lisinopril, p.r.n. analgesics, antiemetics. PAST MEDICAL HISTORY: Hypertension, history of atrial fibrillation, reflux, obstructive uropathy, single kidney, previous stroke, known coronary artery disease. SOCIAL HISTORY: Former smoker. No ethanol. FAMILY HISTORY: Noncontributory. REVIEW OF SYSTEMS: Limited due to his speech difficulties. Through the interpretation of the family, suggests he is not having significant abdominal-related complaints. No dyspnea. PHYSICAL EXAMINATION: GENERAL: Appears to be fairly well nourished, in mild to moderate distress, [place] [address] CONSULTATION Name: ALFONZO MAR Room: [address]#: [id number] Admission: 11/15/17 Attend Phys: Lillie Lockwood Discharge: Date of : 43 Report #: [id number] an ongoing issue with moaning, but does not appear to be related to pain per se. VITAL SIGNS: Temperature 98.3, pulse 66, respirations 24, blood pressure 98/56. SKIN: Warm, dry, no rashes. HEENT: Nasal cannula oxygen in place. NECK: Supple. LUNGS: Generally clear to auscultation. HEART: Regular, I do not appreciate a murmur. ABDOMEN: Soft. There are no overt peritoneal signs. GENITOURINARY: Deferred. RECTAL: Deferred. LABORATORY DATA: CTA chest PE protocol: Large hiatal hernia, unchanged left lung mass, dating back 2015, minimal left pleural effusion, no evidence of emboli. CT abdomen and pelvis showed a distal colon inflammation, circumferential including the sigmoid and rectal portions, pericolonic inflammation, abnormal urinary bladder with distention, mural thickening, left posterior lateral diverticulum containing a bladder stone in the suprapubic catheter, persistent small borderline retroperitoneal lymph nodes, markedly enlarged prostate. Urinalysis; 6-15 white cells, greater than 30 bacteria, triple phosphate crystals, calcium oxalate. Lactic acid 0.8. Electrolytes: Sodium 139, potassium 4.1, chloride 106, bicarb 27, anion gap of 6, BUN and creatinine 16 and 0.9, glucose of 102. LFTs unremarkable. Albumin of 2.6. Total protein 6.4. Estimated GFR of 83. CBC: White count of 15.1, H and H 11.4 and 35.5, platelets of 185 monocytosis. ASSESSMENT: 1. Complicated urinary tract infection in the setting of obstructive uropathy. We will have an ongoing issue with infected bladder stones. I would assume this is a resistant gram-negative, probably ESBL. If identified as Klebsiella, certainly would raise question of ongoing issues of fixed site of infection leading to relapse. Certainly if that is the case, may need to discuss with Urology about possible intervention. 2. Colitis, certainly at risk for Clostridium difficile. We will go ahead and start oral vancomycin in this setting. Stop the levofloxacin. We will see if pending Clostridium difficile studies likely respond fairly readily to the treatment. Discussed with the patient's family. <ELECTRONICALLY SIGNED> By: Johnny Umana MD 11/16/17 1258 1712 0034Johnny Umana MD /nt
--- NOTE | 2017-11-16 14:37 | NUR ---
WOUND CARE NOTE: CONSULT RECEIVED FOR RIGHT ELBOW ABRASION, RIGHT BUTTOCK EXCORIATION. PATIENT PRESENTS WITH A HEALED AREA TO HIS RIGHT ELBOW, PINK WITH NEW EPITHELIUM. APPLIED LOTION TO PROTECT AREA. PARTIAL THICKNESS BREAKDOWN NOTED TO GLUTEAL CREASE AND RIGHT BUTTOCK. BELIEVE THIS IS DUE TO INCONTINENCE ASSOCIATED DERMATITIS. PATIENT WITH INCONTINENCE OF STOOL DUE TO C-DIFF. HAD AN EPISODE DURING WOUND ASSESSMENT. ASSISTED JACQUARD TWINE POLISHER OPERATOR WITH CLEANSING AND PLACING NEW CHUX. APPLIED BARRIER OINTMENT AFTER CLEANSING. EDUCATED PATIENT ON THE NEED TO KEEP OFF AREA, NODDED IN UNDERSTANDING. RECOMMEND TURN Q2 HOURS FREQUENT CHECKS FOR INCONTINENCE LIMIT LAYERS OF LINEN UNDER PATIENT NO BRIEFS IN BED BARRIER OINTMENT BID AND PRN INCONTINENCE-THIN LAYER
[2017-11-16 16:00] VITALS: BP 104/67
--- NOTE | 2017-11-16 19:01 | NUR ---
PT FEELING WELL THIS EVENING, DENIES PAIN, ATE A SMALL AMOUNT OF DINNER. HAD A SMALL SOFT BM, TURNED Q2 HR. AT BEDSIDE THIS EVENING. FALL PRECATUIOINS IN PLACE. WILL CONTINUE TO MONITOR.
[2017-11-16 20:00] VITALS: BP 121/70
[2017-11-17] VITALS: BP 122/74
--- NOTE | 2017-11-17 05:19 | NUR ---
PATIENT RESTED IN BED. NO ACUTE CHANGES, PATIENT DID NOT SHOW SIGNS OF DISTRESS. PATIENT DENIES PAIN, PATIENT WAS TURNED Q2 HOURS. FALL PRECAUTIONS IN PLACE, HOURLY ROUNDING OBSERVED, CALL LIGHT WITHIN REACH, BED ALARM ON.
[2017-11-17 05:42] LABS: ABSOLUTE EOSINOPHILS 0.2 thou/uL (0.0-0.7); ABSOLUTE LYMPHOCYTES 0.9 thou/uL (0.8-5.3); ABSOLUTE MONOCYTES 0.6 thou/uL (0.0-1.2); BASOPHILS 0.4 %; EOSINOPHILS 4.2 %; HEMATOCRIT 31.9 % (42.0-52.0); HEMOGLOBIN 10.3 gm/dL (14.0-18.0); LYMPHOCYTES 16.1 %; MCH 28.4 pg (26.0-34.0); MCHC 32.3 g/dL (28.0-37.0); MONOCYTES 9.7 %; MPV 7.8 fl. (7.2-11.1); NUCLEATED RBCS 0 /100WBC; PLATELET COUNT* 167 thou/uL (150-400); POLYS 69.6 %; RBC 3.62 mil/uL (4.50-6.00); RDW-CV 15.5 % (10.5-14.5); WBC 5.8 thou/uL (4.0-11.0)
[2017-11-17 06:14] LABS: ALBUMIN 2.4 g/dL (3.4-5.0); CALCIUM 8.5 mg/dL (8.5-10.1); CREATININE 0.7 mg/dL (0.6-1.3); POTASSIUM 3.5 mmol/L (3.5-5.1); TOTAL BILIRUBIN 0.6 mg/dL (<0.1-1.0); TOTAL PROTEIN 5.9 g/dL (6.4-8.2)
[2017-11-17 07:00] VITALS: BP 120/76
[2017-11-17 08:00] VITALS: BP 120/76
[2017-11-17 08:18] VITALS: BP 120/76
--- NOTE | 2017-11-17 08:40 | NUR ---
VSS, ASSUMED CARE IN THE AM, ASSESSMENT PERFROMED AND CHARTED, FALL PRECAUTIONS IN PLACE AND CALL LIGHT IN REACH, PT IS CONFUSED AND IS ON 2L PRN BUT IS NOW MOVED TO RA, SAO2 97%, PT IS MED-SURG STATUS, HAS RIGHT SIDE WEAKNESS AND IS A Q2 TURN, SIMS IN PLACE AND IS DRAINIG, HE SEEMS TO BE IN NO PAIN, PT GOAL IS TO OFF LOAD ON BUTT AND TURN ON SIDE, WILL FOLLOW WITH PLAN OF CARE.
[2017-11-17 12:00] VITALS: BP 120/63
--- NOTE | 2017-11-17 18:49 | NUR ---
VSS, PT IS PROGRESSING TOWARDS GOAL, PT HAS BEEN AT BED SIDE ALL DAY, FALL PRECAIUTIONS IN PLACE AND CALL LIGHT IN REACH, PT IS CONFUSED AND ON RA MED-SURG STATUS, PT DENIES ANY PAIN AND SIMS IN PLACE AND DRAINIG, HOURLY ROUNDS COMPLETED AND WILL FOLLOW WITH END OF SHIFT REPORT, NOT STATUS CHANGE,
[2017-11-17 20:00] VITALS: BP 97/56
[2017-11-18 00:40] VITALS: BP 124/73
--- NOTE | 2017-11-18 07:08 | NUR ---
PATIENT RESTED IN BED, NO ACUTE CHANGES. PATIENT DID NOT SHOW SIGNS OF DISTRESS, FALL PRECAUTIONS IN PLACE.
[2017-11-18 07:30] VITALS: BP 146/86
[2017-11-18 09:00] VITALS: BP 146/86
--- NOTE | 2017-11-18 11:17 | NUR ---
VSS, ASSUMED CARE IN THE AM, ASSESSMENT PERFORMED AND CHARTED, FALL PRECAUTIONS IN PLACE AND CALL LIGHT IN REACH, PT IS BEDREST MAX ASSIST, PT IS A&OX1 IS CONFUSED AND IS HARD TO UNDERSTAND, PT IS MED-SURG STATUS AND HAS SIMS INPLACE AND IS DRAINING, WILL FOLLOW WITH PLAN OF CARE AND HOURLY ROUNDS
[2017-11-18 12:10] VITALS: BP 151/77
[2017-11-18 17:23] VITALS: BP 143/89
--- NOTE | 2017-11-18 18:22 | NUR ---
VSS, PT HAS NO STATUS CHANGE AT THIS TIME, PT IS IN BED WITH CALL LIGHT IN REACH AND FALL PRECAUTIONS IN PLACE, PT HAS SIMS IN PLACE AND IS DRAING, PT IS A&O1 AND IS CONFUSED, HE IS MED-SURG STATUS AND HOURLY ROUNDS COMPLETED,
[2017-11-18 20:45] VITALS: BP 98/46
[2017-11-19 08:00] VITALS: BP 133/81
--- NOTE | 2017-11-19 16:10 | NUR ---
PATIENT TRANSFERRED TO ROOM 304 VIA BED FROM TELEMETRY. PATIENT A/O, APHASIC. DENIES PAIN. IV FLUIDS AND IV ZOSYN INFUSING. SCDS IN PLACE. SUPRAPUBIC CATHETER IN PLACE, DRAINING YELLOW URINE DRAINING. AT BEDSIDE. CALL LIGHT WITHIN REACH. WILL CONTINUE WITH PLAN OF CARE.
[2017-11-19 16:39] VITALS: BP 137/99
--- NOTE | 2017-11-19 17:58 | NUR ---
PATIENT HAS BEEN AWAKE AND ALERT SINCE TRANSFERRING, REMAINS APHASIC. ABLE TO NOD HEAD TO YES/NO ANSWERS AND ABLE TO ANSWER IN SMALL WORDS AT TIMES. PATIENT CONTINUES ON IV FLUIDS AND IV ZOSYN INFUSING ORDERED. PATIENT ON ROOM AIR. INCONTINENT OF MODERATE SOFT, UNFORMED BM. SUAD-CARE PROVIDED AND PICTURE OBTAINED OF RIGHT BUTTOCK AND PLACED IN CHART. RIGHT ELBOW HEALED, NO PICTURE OBTAINED. PATIENT TURNED EVERY 2 HOURS SINCE TRANSFERRING AND HEELS ELEVATED. CONTINUES ON PO VANCOMYCIN FOR C DIFF. SUPRAPUBIC CATH IN PLACE AND DRAINING YELLOW URINE. URINE CULTURE SHOWING ESBL. REMAINS IN ISOLATION FOR CDIFF/ESBL OF URINE. AT BEDSIDE. HOURLY ROUNDING COMPLETED. CALL LIGHT WITHIN REACH. WILL CONTINUE WITH PLAN OF CARE.
--- NOTE | 2017-11-19 19:50 | NUR ---
I ASSUMED CARE OF THE PATIENT AT 0700. HE IS ALERT AND ORIENTED X3, BUT UNABLE TO SPEAK MUCH. BED IS IN THE LOW LOCKED POSITION AND CALL LIGHT IS IN REACH. HOURLY ROUNDING WAS COMPLETED AND PATIENT NEEDS ARE MET. PAIN IS DENIED. PATIENT NEEDS FOOD TRAY SETUP, BUT IS ABLE TO FEED HIMSELF. DAUGHTER WAS AT THE BEDSIDE A PORTION OF THE DAY. CONTINUOUS FLUIDS ARE INFUSING. ISOLATION WAS MAINTAINED. HE WAS TRANSFERED TO [facility] AT 1600 AND REPORT WAS GIVEN TO [place]. PATIENT WAS TURNED EVERY TWO HOURS PER PROTOCOL. HIS VITALS ARE STABLE. SUPRAPUBIC CARE WAS GIVEN.
[2017-11-19 20:30] VITALS: BP 152/83
[2017-11-19 21:37] LABS: HEMATOCRIT 34.5 % (42.0-52.0); MCH 28.1 pg (26.0-34.0); MCHC 31.8 g/dL (28.0-37.0); MCV 88.4 fL (80.0-100.0); MPV 7.5 fl. (7.2-11.1); RBC 3.9 mil/uL (4.50-6.00); RDW-CV 15.5 % (10.5-14.5); WBC 5.9 thou/uL (4.0-11.0)
[2017-11-19 21:53] LABS: CALCIUM 8.2 mg/dL (8.5-10.1); MAGNESIUM 1.7 mg/dL (1.8-2.4); POTASSIUM 3.6 mmol/L (3.5-5.1)
[2017-11-20 04:41] LABS: HEMATOCRIT 33.3 % (42.0-52.0); HEMOGLOBIN 10.7 gm/dL (14.0-18.0); MCH 28.3 pg (26.0-34.0); MCHC 32.1 g/dL (28.0-37.0); MPV 7.4 fl. (7.2-11.1); RBC 3.79 mil/uL (4.50-6.00); RDW-CV 15.2 % (10.5-14.5); WBC 5.2 thou/uL (4.0-11.0)
[2017-11-20 04:59] LABS: CALCIUM 8.1 mg/dL (8.5-10.1); CREATININE 0.8 mg/dL (0.6-1.3); MAGNESIUM 1.6 mg/dL (1.8-2.4); POTASSIUM 3.5 mmol/L (3.5-5.1)
--- NOTE | 2017-11-20 05:39 | NUR ---
PT SLEPT MOST OF SHIFT. ASSESSMENT DOCUMENTED. MEDS GIVEN PER E-MAR. IV PATENT, FLUIDS INFUSING. NO REPORTS OF PAIN. PT REPOSITIONED THROUGH NIGHT. WILL CONTINUE WITH PLAN OF CARE.
[2017-11-20 07:40] VITALS: BP 143/77
[2017-11-20 10:35] LABS: URINE BILIRUBIN NEGATIVE (Negative); URINE BLOOD 1+ (Negative); URINE CLARITY CLEAR; URINE COLOR YELLOW; URINE GLUCOSE-RANDOM NEGATIVE (Negative); URINE KETONES NEGATIVE (Negative); URINE LEUKOCYTES-REFLEX NEGATIVE (Negative); URINE NITRITE-REFLEX NEGATIVE (Negative); URINE PROTEIN NEGATIVE (Negative); URINE UROBILINOGEN 0.2 E.U./dl (0.2-1.0)
[2017-11-20 11:02] LABS: CASTS None Seen /LPF (None Seen); CRYSTALS None Seen /LPF (None Seen); SQUAMOUS NONE SEEN /LPF (0-3); URINE WBC-REFLEX 6-15 Few /HPF (0-5)
[2017-11-20 11:03] LABS: BACTERIA-REFLEX None Seen /HPF (None Seen); MUCUS 0-3 Light strn/LPF (None Seen); URINE RBC None Seen /HPF (0-2); YEAST-REFLEX Present (None Seen)
--- NOTE | 2017-11-20 13:09 | NUR ---
Pt to dc home with family today. Request for stretcher van transport for pt safety arranged through [facility] [phone]. syrup maker time for 16:00. [facility]Y faxed information for pt oral vanc to [facility] and called pharmacy to confirm at ph [phone] and fax [phone]. Pt has needed DME and [facility]. No other dc needs expressed.
[2017-11-20 13:25] VITALS: BP 143/77
[2017-11-20] MEDS ORDERED: CIPROFLOXACIN750 MG PO (13:37)
[2017-11-20] MEDS ORDERED: AUGMENTIN 875-1 EACH PO (13:39)
[2017-11-20] MEDS ORDERED: VANCOMYCIN125 MG/2.1 PO (13:44)
[2017-11-20 14:03] VITALS: BP 143/77
--- NOTE | 2017-11-20 15:09 | NUR ---
PATIENT IS ALERT AND ORIENTED TODAY VERY PLEASANT. PATIENT UNDERSTANDS COMMANDS AND ANSWERS WITH HEAD NODS. PATIENT IS BEING DISCHARGED TO HOME WITH HOME HEALTH ALREADY SET UP. VITAL SIGNS HAVE BEEN STABLE ON ROOM AIR. DISCHARGE INSTRUCTIONS GONE OVER WITH DAUGHTER OVER THE PHONE AND IN PERSON EARLIER IN THE DAY. PRESCRIPTIONS SENT WITH TRANSPORTER AND DIRECTED TO GIVE TO DAUGHTER WHO IS AT HOME. DAUGHTER IS AT HOME WAITING ON PATIENT. LEFT VIA CART WITH AMBULANCE.
[2017-11-20 15:17] VITALS: BP 143/77
== END 2017-11-20 15:19 | disposition home or self-care (01) | DRG 177 ==
LOC: M.ERS 23:25 → M.2W 11-15 01:05 → M.TBA-ER 11-15 01:05 → M.2W 11-15 01:44 → M.3W 11-19 16:05
PROVIDERS: Emergency Medicine; Family Medicine; Internal Medicine; Specialist; ADMIT Internal Medicine
DX: J69.0 Pneumonitis due to inhalation of food and vomit (principal); G93.40 Encephalopathy, unspecified; R65.11 Systemic inflammatory response syndrome (SIRS) of non-infectious origin with acute organ dysfunction; A04.72 Enterocolitis due to Clostridium difficile, not specified as recurrent; N39.0 Urinary tract infection, site not specified; I69.351 Hemiplegia and hemiparesis following cerebral infarction affecting right dominant side; Q60.0 Renal agenesis, unilateral; N13.30 Unspecified hydronephrosis; R65.10 Systemic inflammatory response syndrome (SIRS) of non-infectious origin without acute organ dysfunction; N32.0 Bladder-neck obstruction; N40.1 Benign prostatic hyperplasia with lower urinary tract symptoms; I25.10 Atherosclerotic heart disease of native coronary artery without angina pectoris; I10 Essential (primary) hypertension; I48.91 Unspecified atrial fibrillation; K21.9 Gastro-esophageal reflux disease without esophagitis; Z87.891 Personal history of nicotine dependence; Z95.1 Presence of aortocoronary bypass graft; I69.320 Aphasia following cerebral infarction; Z79.01 Long term (current) use of anticoagulants; Z79.899 Other long term (current) drug therapy; Z88.8 Allergy status to other drugs, medicaments and biological substances; Z91.040 Latex allergy status

== ENCOUNTER 2019-10-12 11:18 | Inpatient (IN) | payer OTHER ==
[~2019-10-12] VITALS: Ht 188 cm; Wt 112.0 kg
--- NOTE | ~2019-10-12 | EEG ---
[address] [address] EEG STUDY REPORT Name: JOLEENEVANGELISTAALFONZO Robson Room: [address] IN M.R.#: [id number] Admission: 10/12/19 Attend Phys: Mago Alves MD Discharge: 10/14/19 Date of : 43 Report #: [id number] THIS REPORT FOR: //name// CC: FAM unknown Mago Alves [facility] DATE OF SERVICE: 10/14/2019 This patient is being evaluated for the possibility of seizure. EEG was done by placing the electrodes by standard 10-20 system of electrode placement. Both referential and sequential montages were used for recording. Background activity in this patient's EEG is about 7-8 Hz and 30 microvolts. There is a poorly formed background activity. A lot of EEG was obtained when the patient was asleep and that is associated with bilateral slowing and vertex sharp waves. Photic stimulation was unremarkable. Throughout the record, no active epileptiform activity was noticed. IMPRESSION: Moderately abnormal EEG because it is disorganized and poorly formed. That is a nonspecific abnormality, which can occur with encephalopathy, effect of psychotropic medication, dementia, etc. Clinical correlation is recommended. By: 1712 Hayden Maravilla MD /nt
[~2019-10-12 11:18] MED LIST changes: +CETIRIZINE HCL10 MG; +CLARITIN10 MG PO; +LEVSIN0.125 MG SUBLING; +VANCOMYCIN125 MG/2.1 PO
[2019-10-12 11:35] VITALS: BP 116/63
[2019-10-12 11:54] LABS: ABSOLUTE EOSINOPHILS 0.2 thou/uL (0.0-0.7); ABSOLUTE LYMPHOCYTES 1.3 thou/uL (0.8-5.3); ABSOLUTE MONOCYTES 0.7 thou/uL (0.0-1.2); ABSOLUTE NEUTROPHILS 5.8 thou/uL (1.6-8.1); BASOPHILS 0.4 %; EOSINOPHILS 2.9 %; HEMATOCRIT 42.5 % (42.0-52.0); HEMOGLOBIN 14.4 gm/dL (14.0-18.0); LYMPHOCYTES 15.6 %; MCH 31.7 pg (26.0-34.0); MCV 93.2 fL (80.0-100.0); MONOCYTES 8.8 %; MPV 8.1 fl. (7.2-11.1); NUCLEATED RBCS 0 /100WBC; PLATELET COUNT* 190 thou/uL (150-400); POLYS 72.3 %; RBC 4.56 mil/uL (4.50-6.00); RDW-CV 14.4 % (10.5-14.5)
[2019-10-12 12:07] LABS: CALCIUM 8.3 mg/dL (8.5-10.1); CREATININE 1.1 mg/dL (0.6-1.3); POTASSIUM 3.5 mmol/L (3.5-5.1)
[2019-10-12 12:08] LABS: PROTIME 10.7 Seconds (9.20-11.50)
[2019-10-12 12:11] LABS: ALBUMIN 3.2 g/dL (3.4-5.0); TOTAL PROTEIN 7.1 g/dL (6.4-8.2)
[2019-10-12 12:25] LABS: URINE BILIRUBIN NEGATIVE (Negative); URINE BLOOD TRACE (Negative); URINE CLARITY SL CLOUDY; URINE COLOR YELLOW; URINE GLUCOSE-RANDOM NEGATIVE (Negative); URINE KETONES NEGATIVE (Negative); URINE LEUKOCYTES 2+ (Negative); URINE NITRITE POSITIVE (Negative); URINE PROTEIN NEGATIVE (Negative); URINE UROBILINOGEN 0.2 E.U./dl (0.2-1.0)
[2019-10-12 12:35] LABS: BACTERIA >30 Many /HPF (None Seen); CALCIUM OXALATE 0-3 Few /LPF (None Seen); HYALINE CASTS 0-3 Few /LPF (None Seen); MUCUS None Seen strn/LPF (None Seen); SQUAMOUS 0-3 Few /LPF (0-3); URINE RBC 0-2 Rare /HPF (0-2); URINE WBC 6-15 Few /HPF (0-5)
[2019-10-12] MEDS ORDERED: BUMETANIDE 1 MG1 M1 PO (12:47)
[2019-10-12] MEDS ORDERED: PROZAC 10 MG CA10 MG PO (12:48)
[2019-10-12] MEDS ORDERED: CHILDREN'S ZYRT10 M1 PO (12:48)
[2019-10-12 17:00] VITALS: BP 105/63
[2019-10-12 17:39] VITALS: BP 94/55
[2019-10-12] MEDS ORDERED: B12 ACTIVE1000 MCG PO (18:22)
[2019-10-12] MEDS ORDERED: FOLIC ACID1 MG PO (18:22)
[2019-10-12] MEDS ORDERED: PROBIOTIC1 EAC7 PO (18:24)
[2019-10-12] MEDS ORDERED: VITAMIN D310 MC1 PO (18:24)
[2019-10-12] MEDS ORDERED: FLONASE 0.05%50 MCG NARES (18:26)
[2019-10-12 21:09] VITALS: BP 102/54
[2019-10-13] VITALS: BP 84/48
[2019-10-13 04:00] VITALS: BP 101/60
[2019-10-13 05:19] LABS: HEMATOCRIT 36.6 % (42.0-52.0); HEMOGLOBIN 12.5 gm/dL (14.0-18.0); MCH 31.4 pg (26.0-34.0); MCV 92.4 fL (80.0-100.0); MPV 7.8 fl. (7.2-11.1); RBC 3.96 mil/uL (4.50-6.00); RDW-CV 14.7 % (10.5-14.5); WBC 7.1 thou/uL (4.0-11.0)
[2019-10-13 05:32] LABS: ALBUMIN 2.6 g/dL (3.4-5.0); ALKALINE PHOSPHATASE 108 U/L (46-116); ANION GAP 3 mmol/L (7-16); BUN 11 mg/dL (7-18); CALCIUM 7.8 mg/dL (8.5-10.1); CHLORIDE 106 mmol/L (98-107); CHOLESTEROL 131 mg/dL (<200); CO2 34 mmol/L (21-32); CREATININE 0.9 mg/dL (0.6-1.3); GLUCOSE 84 mg/dL (70-99); HDL CHOLESTEROL 32 mg/dL (>40); LDL CHOLESTEROL 84 mg/dL (<100); POTASSIUM 3.6 mmol/L (3.5-5.1); SGOT 13 U/L (15-37); SGPT 15 U/L (30-65); SODIUM 143 mmol/L (136-145); TC:HDL 4.1 Ratio (Not establshd); TOTAL BILIRUBIN 0.9 mg/dL (<0.1-1.0); TOTAL PROTEIN 5.7 g/dL (6.4-8.2); TRIGLYCERIDE 78 mg/dL (<150); VLDL 16 mg/dL (<40)
[2019-10-13 05:37] LABS: GLYCOHEMOGLOBIN (HGB A1C) 5.2 % (4.8-5.6)
[2019-10-13 05:52] LABS: SERUM ASSESSMENT CLEAR
[2019-10-13 06:17] LABS: MAGNESIUM 1.9 mg/dL (1.8-2.4)
[2019-10-13 07:52] VITALS: BP 108/65
--- NOTE | 2019-10-13 12:33 | EKG ---
[place] [address] ELECTROCARDIOGRAM REPORT Name: JOLEENSONUALFONZO MART Room: [address] ADM IN M.R.#: [id number] Admission: 10/12/19 Attend Phys: Mago Alves, Discharge: Date of : 43 Date of Service: 10/12/19 1206 Report #: [id number] THIS REPORT FOR: //name// [facility] ED Test Date: 2019-10-12 Test Time: 12:06:52 Pat Name: ALFONZO MAR Department: Room: [facility] Gender: M Crystal Grower: MS : 1945 Requested By: James Thompson Order Number: [id number] MD: Michel Webber Measurements Intervals [place] Rate: 96 P: [place]: QRS: 12 QRSD: 102 T: 191 QT: 375 QTc: 474 Interpretive Statements Atrial fibrillation Abnormal R-wave progression, early transition Abnrm T, consider ischemia, anterolateral lds Compared to ECG 11/14/2017 23:32:49 Possible ischemia still present Electronically Signed On 10-13-2019 12:31:57 CDT by Michel Webber [email or web address] <ELECTRONICALLY SIGNED> By: Michel Webber MD, [facility] 10/13/19 1231 1206 1206 Michel Webber MD, [facility] /EPI
[2019-10-13 12:43] VITALS: BP 110/59
[2019-10-13 17:06] VITALS: BP 99/68
[2019-10-13 20:49] VITALS: BP 119/74
[2019-10-14 00:29] VITALS: BP 111/55
[2019-10-14 04:00] VITALS: BP 117/62
[2019-10-14 08:00] VITALS: BP 113/64
[2019-10-14] MEDS ORDERED: KEPPRA 500 MG500 M1 PO (10:19)
[2019-10-14 10:48] VITALS: BP 113/64
[2019-10-14 12:12] VITALS: BP 110/59
[2019-10-14] MEDS ORDERED: CIPROFLOXACIN750 MG PO (14:30)
[2019-10-14] MEDS ORDERED: AUGMENTIN 875-1 EACH PO (14:30)
--- NOTE | 2019-10-14 15:35 | 2DMMODE ---
[place] [address] 2 D/M-MODE ECHOCARDIOGRAM Name: ALFONZO MAR Room: [address] IN [facility]#: [id number] Admission: 10/12/19 Attend Phys: Mago Alves, Discharge: Date of : 43 Date of Service: 10/14/19 1534 Report #: [id number] THIS REPORT FOR: cc: [facility] - Clinic physician unknown [facility] - Clinic physician unknown Leonides Chapman MD [facility] ~ APPROVED REPORT Study performed: 10/14/2019 11:41:55 EXAM: Comprehensive 2D, Doppler, and color-flow Echocardiogram Patient Location: In-Patient Room #: [facility] Status: routine BSA: 2.43 HR: 85 bpm BP: 113/64 mmHg Rhythm: Atrial Fibrillation Other Information Study Quality: Good Indications CVA/TIA Echo Enhancing Agent Indication: Rule out Shunt Agent(s) / Amount(s) Used: Agitated Saline 10 cc Comments: Technically difficult bubble study 2D Dimensions IVSd: 14.15 (7-11mm) LVOT Diam: 21.50 (18-24mm) LVDd: 45.96 mm PWd: 11.47 (7-11mm) Ascending Ao: 32.80 (22-36mm) LVDs: 22.45 (25-40mm) Aortic Root: 35.90 mm Volumes Left Atrial Volume (Systole) LA ESV Index: 39.10 mL/m2 Aortic Valve AoV Peak Michael.: 0.83 m/s AO Peak Gr.: 2.76 mmHg LVOT Max P.[address] [address] 2 D/M-MODE ECHOCARDIOGRAM Name: ALFONZO MAR Room: [address] IN [facility]#: [id number] Admission: 10/12/19 Attend Phys: Mago Alves, Discharge: Date of : 43 Date of Service: 10/14/19 1534 Report #: [id number] AO Mean Gr.: 1.38 mmHg LVOT Mean P.36 mmHg LVOT Max V: 0.83 m/s AO V2 VTI: 15.30 cm LVOT Mean V: 0.54 m/s MARCO (VTI): 4.32 cm2 LVOT V1 VTI: 18.20 cm Mitral Valve MV Decel. Time: 200.57 ms MV PHT: 58.17 ms MVA (PHT): 3.78 cm2 TDI Medial E' Michael.: 0.12 m/s Lateral E' Michael.: 0.13 m/s Pulmonary Valve PV Peak Michael.: 0.65 m/s PV Peak Gr.: 1.70 mmHg Tricuspid Valve RAP Estimate: 5.00 mmHg TR Peak Gr.: 26.10 mmHg RVSP: 31.00 mmHg PA Pressure: 31.00 mmHg Left Ventricle The left ventricle is normal size. There is normal LV segmental wall motion. There is normal left ventricular wall thickness. Left ventricular systolic function is normal. The left ventricular ejection fraction is within the normal range. LVEF is 60-65%. This study is not technically sufficient to allow evaluation of the LV diastolic function due to atrial fibrillation. Right Ventricle The right ventricle is normal size. The right ventricular systolic function is normal. Atria Left atrium is mildly dilated. The interatrial septum is intact with no evidence for an atrial septal defect in a technically diffucult bubble study. The right atrium size is normal. Aortic Valve The aortic valve is normal in structure. No aortic regurgitation is present. There is no aortic valvular stenosis. Mitral Valve The mitral valve is normal in structure. Trace mitral regurgitation. No evidence of mitral [place] [address] 2 D/M-MODE ECHOCARDIOGRAM Name: ALFONZO MAR Room: [address] IN [facility]#: [id number] Admission: 10/12/19 Attend Phys: Mago Alves, Discharge: Date of : 43 Date of Service: 10/14/19 1534 Report #: [id number] Tricuspid Valve The tricuspid valve is normal in structure. Trace tricuspid regurgitation. Mild pulmonary hypertension. Pulmonic Valve The pulmonary valve is normal in structure. Trace pulmonic regurgitation. Great Vessels The aortic root is normal in size. IVC is normal in size and collapses >50% with inspiration. Pericardium There is no pericardial effusion. <Conclusion> The left ventricle is normal size. There is normal left ventricular wall thickness. Left ventricular systolic function is normal. The left ventricular ejection fraction is within the normal range. LVEF is 60-65%. This study is not technically sufficient to allow evaluation of the LV diastolic function due to atrial fibrillation. The right ventricle is normal size. Left atrium is mildly dilated. The aortic valve is normal in structure. The mitral valve is normal in structure. Trace mitral regurgitation. The tricuspid valve is normal in structure. IVC is normal in size and collapses >50% with inspiration. There is no pericardial effusion. There is normal LV segmental wall motion. The interatrial septum is intact with no evidence for an atrial septal defect in a technically diffucult bubble study. <ELECTRONICALLY SIGNED> By: Leonides Chapman MD, FACC 10/14/19 1534 1534 1534 Leonides Chapman MD, FACC /INF
== END 2019-10-14 15:45 | disposition home health service (06) | DRG 100 ==
LOC: M.ERS 11:18 → M.2W 12:55 → M.TBA-ER 12:55 → M.2W 17:22
PROVIDERS: Emergency Medicine Emergency Medical Services; Psychiatry & Neurology Neurology; ADMIT Internal Medicine
DX: R56.9 Unspecified convulsions (principal); G93.41 Metabolic encephalopathy; E44.0 Moderate protein-calorie malnutrition; I69.351 Hemiplegia and hemiparesis following cerebral infarction affecting right dominant side; I25.10 Atherosclerotic heart disease of native coronary artery without angina pectoris; I10 Essential (primary) hypertension; I48.91 Unspecified atrial fibrillation; N40.0 Benign prostatic hyperplasia without lower urinary tract symptoms; K21.9 Gastro-esophageal reflux disease without esophagitis; Z87.440 Personal history of urinary (tract) infections; Z90.5 Acquired absence of kidney; Z79.01 Long term (current) use of anticoagulants; Z79.899 Other long term (current) drug therapy; Z91.040 Latex allergy status; Z87.891 Personal history of nicotine dependence; Z95.1 Presence of aortocoronary bypass graft; Z74.01 Bed confinement status; Z79.82 Long term (current) use of aspirin; I69.320 Aphasia following cerebral infarction; I69.392 Facial weakness following cerebral infarction

== ENCOUNTER 2020-02-09 18:53 | Inpatient (IN) | payer OTHER ==
[~2020-02-09] VITALS: Ht 185.4 cm; Wt 111.6 kg
[~2020-02-09 18:53] MED LIST changes: +AUGMENTIN 875-1 EACH PO; +B12 ACTIVE1000 MCG PO; +BUMETANIDE 1 MG1 M1 PO; +CHILDREN'S ZYRT10 M1 PO; +CIPROFLOXACIN750 MG PO; +FLONASE 0.05%50 MCG NARES; +FOLIC ACID1 MG PO; +KEPPRA 500 MG500 M1 PO; +PROBIOTIC1 EAC7 PO; +PROZAC 10 MG CA10 MG PO; +VITAMIN D310 MC1 PO
[2020-02-09 19:02] VITALS: BP 127/74
[2020-02-09 19:31] LABS: URINE BILIRUBIN NEGATIVE (Negative); URINE BLOOD NEGATIVE (Negative); URINE COLOR YELLOW; URINE GLUCOSE-RANDOM NEGATIVE (Negative); URINE KETONES NEGATIVE (Negative); URINE PROTEIN 2+ (Negative)
[2020-02-09 19:32] LABS: URINE LEUKOCYTES-REFLEX 3+ (Negative); URINE NITRITE-REFLEX POSITIVE (Negative)
[2020-02-09 19:33] LABS: SQUAMOUS 0-3 Few /LPF (0-3); URINE CLARITY HAZY
[2020-02-09 19:34] LABS: BACTERIA-REFLEX >30 Many /HPF (None Seen); CALCIUM OXALATE 0-3 Few /LPF (None Seen); CASTS None Seen /LPF (None Seen); URINE RBC None Seen /HPF (0-2); URINE WBC-REFLEX 0-5 Rare /HPF (0-5)
[2020-02-09 19:41] LABS: ABSOLUTE EOSINOPHILS 0.3 thou/uL (0.0-0.7); ABSOLUTE MONOCYTES 0.5 thou/uL (0.0-1.2); ABSOLUTE NEUTROPHILS 4.5 thou/uL (1.6-8.1); BASOPHILS 0.5 %; EOSINOPHILS 4.6 %; HEMATOCRIT 43.7 % (42.0-52.0); HEMOGLOBIN 14.6 gm/dL (14.0-18.0); LYMPHOCYTES 16.3 %; MCH 31.4 pg (26.0-34.0); MCHC 33.5 g/dL (28.0-37.0); MCV 93.7 fL (80.0-100.0); MPV 7.8 fl. (7.2-11.1); NUCLEATED RBCS 0 /100WBC; PLATELET COUNT* 137 thou/uL (150-400); POLYS 70.6 %; RBC 4.66 mil/uL (4.50-6.00); RDW-CV 14.7 % (10.5-14.5); WBC 6.4 thou/uL (4.0-11.0)
[2020-02-09 19:50] LABS: CALCIUM 8.5 mg/dL (8.5-10.1); CREATININE 1.1 mg/dL (0.6-1.3); INR 1.1; POTASSIUM 3.8 mmol/L (3.5-5.1); PROTIME 11.3 Seconds (9.20-11.50)
[2020-02-09 19:55] LABS: TOTAL BILIRUBIN 0.7 mg/dL (<0.1-1.0); TOTAL PROTEIN 6.8 g/dL (6.4-8.2)
[2020-02-09 20:00] LABS: BE 1.9 mmol/L (-2 to +3); PCO2 45.7 mmHg (35.0-45.0); pH 7.395 (7.340-7.450)
[2020-02-09 20:03] LABS: PO2 132.4 mmHg (75.0-100.0)
[2020-02-09 21:53] VITALS: BP 124/68
[2020-02-10 04:00] VITALS: BP 99/58
[2020-02-10 08:00] VITALS: BP 99/54
--- NOTE | 2020-02-10 15:39 | EKG ---
[place] [address] ELECTROCARDIOGRAM REPORT Name: ALFONZO MAR Room: [address] ADM IN M.R.#: [id number] Admission: 02/09/20 Attend Phys: Maurice Curran Discharge: Date of : 43 Date of Service: 02/09/20 1856 Report #: [id number] THIS REPORT FOR: //name// [facility] ED Test Date: 2020-02-09 Test Time: 18:56:05 Pat Name: ALFONZO MAR Department: Room: [address] Gender: M Dispute Specialist: : 1945 Requested By: Maurice Curran Order Number: [id number] Reading MD: Leonides Chapman Measurements Intervals [place] Rate: 77 P: [place]: QRS: -23 QRSD: 97 T: -90 QT: 429 QTc: 486 Interpretive Statements Atrial fibrillation Borderline left axis deviation Abnormal R-wave progression, early transition Abnrm T, consider ischemia, anterolateral lds Compared to ECG 10/12/2019 12:06:52 No significant changes Electronically Signed On 02-10-2020 15:39:17 CDT by Leonides Chapman [email or web address] <ELECTRONICALLY SIGNED> By: Leonides Chapman MD, FAC 02/10/20 1539 1856 1856 Leonides Chapman MD, FAC /EPI
[2020-02-10 16:02] VITALS: BP 120/64
[2020-02-10 20:00] VITALS: BP 118/61
[2020-02-11] VITALS: BP 118/65
[2020-02-11 01:53] VITALS: BP 144/64
[2020-02-11 04:00] VITALS: BP 93/53
[2020-02-11 04:49] LABS: HEMATOCRIT 38.7 % (42.0-52.0); HEMOGLOBIN 13.1 gm/dL (14.0-18.0); MCH 31.5 pg (26.0-34.0); MCHC 33.8 g/dL (28.0-37.0); MCV 93.3 fL (80.0-100.0); MPV 7.7 fl. (7.2-11.1); RBC 4.15 mil/uL (4.50-6.00); RDW-CV 14.6 % (10.5-14.5); WBC 5.9 thou/uL (4.0-11.0)
[2020-02-11 04:59] LABS: ALBUMIN 2.5 g/dL (3.4-5.0); CREATININE 0.9 mg/dL (0.6-1.3); MAGNESIUM 1.7 mg/dL (1.8-2.4); PHOSPHORUS* 2.3 mg/dL (2.5-4.9); POTASSIUM 4.1 mmol/L (3.5-5.1)
--- NOTE | 2020-02-11 07:45 | CON ---
[address] [address] CONSULTATION Name: ALFONZO MAR Room: [address] IN M.R.#: [id number] Admission: 02/09/20 Attend Phys: Robson Costello Discharge: Date of : 43 Report #: [id number] THIS REPORT FOR: //name// cc: [facility] Riojas family physician/PCP MAC - [place] family physician/PCP ~ THIS REPORT FOR: //name// CC: [facility] physician/PCP Maurice Curran DATE OF SERVICE: 02/10/2020 INFECTIOUS DISEASE CONSULTATION ATTENDING PHYSICIAN: Maurice Curran MD REASON FOR EVALUATION: Suspected complicated urinary tract infection, complicated by altered mental status. HISTORY OF PRESENT ILLNESS: Chart reviewed, patient examined. This is a 74-year-old gentleman, apparently with known history of CVA, right-sided related deficits. He does have some speech difficulty as well, who is known to have frequent urinary tract infections. He presented with progressive weakness, altered mental status. Spouse was felt likely this was due to an infection, probable urinary tract. He is unable to give any details of history. He does barely arouse. He makes some moaning noises. Apparently does make some eye contact. Per history apparently he denied abdominal pain. No fevers that we are aware of, cough or chills. He was evaluated in the Emergency Room. Urinalysis was fairly unremarkable in terms of pyuria, although greater than 3 bacteria. CBC was generally unremarkable as well. Chest x-ray showed no acute process. Lactic acid of 1.2 with no evidence of hypoxemia with pO2 of 132 on 2 liters. Blood cultures are sterile thus far. Empirically, he was started on antimicrobial therapy with levofloxacin. Review of previous cultures available at this facility quite old, it was noted to be gram-negative Klebsiella back in 11/2017, that was noted to have extended-spectrum beta-lactamase radio producer as well as Pseudomonas aeruginosa. ALLERGIES: LISTED TO LATEX. CURRENT MEDICATIONS: From home list include; levetiracetam, budesonide, fluoxetine, baclofen, cetirizine, folic acid, B12, cholecalciferol, apixaban, gabapentin, metoprolol. Apparently, he has recently been on Cipro as well as Augmentin. PAST MEDICAL HISTORY: As described above. History of hypertension, atrial fibrillation, reflux, UTI, stroke with right-sided weakness, [place] [address] CONSULTATION Name: ALFONZO MAR Room: [address] IN [facility]#: [id number] Admission: 02/09/20 Attend Phys: Robson Costello Discharge: Date of : 43 Report #: [id number] artery disease, history of prostatic hypertrophy with obstructive uropathy, suprapubic catheter, expressive aphasia, history of depression. SOCIAL HISTORY: Former smoker. No ethanol. No illicit drug use. FAMILY HISTORY: Noncontributory. REVIEW OF SYSTEMS: Not obtained. PHYSICAL EXAMINATION: GENERAL: He is lying in left lateral decubitus position, he does barely opens his eyes too, fairly vigorous verbal as well as some tactile stimuli, does have some repeated moaning, appears chronically ill. VITAL SIGNS: Temperature 98.6, pulse 86, respirations 18, blood pressure is 99/54. SKIN: Warm and dry. NECK: Somewhat resistant to movement, I do not think it is meningismus. LUNGS: Diminished breath sounds. HEART: Regular. I do not appreciate a murmur. ABDOMEN: Seems to be soft, nontender. No peritoneal signs. GENITOURINARY AND RECTAL: Deferred. LABORATORY DATA: Urinalysis described above. CBC: White count of 6.4, H and H 14.6 and 43.7, platelets of 137. Electrolytes; sodium 145, potassium 3.8, chloride 106, bicarbonate is 35, anion gap of 4, BUN and creatinine 17 and 1.1, glucose of 81. LFTs unremarkable. Albumin of 3, total protein 6.8, estimated GFR of 65. Chest x-ray showed no acute process. Lactic acid 1.2. ABGs on 2 liters showed pH 7.395, pCO2 of 45.7, pO2 of 132.4. ASSESSMENT AND PLAN: 1. Complicated urinary tract infection. The patient has these frequently. Certainly altered mental status is significant component in contributing presenting factors or symptoms that triggers the evaluation. We will continue therapy, presuming he has got a resistant gram negative, ____ cefepime, ____ a little bit of quinolones causing a neuropsychiatric type side effects. We will await those culture results. Monitor expectantly, certainly at risk for other complications. <ELECTRONICALLY SIGNED> By: Johnny Umana MD 02/11/20 0745 1047 1202Joavi Umana MD /nt
[2020-02-11 08:00] VITALS: BP 131/68
[2020-02-11 12:02] VITALS: BP 116/68
[2020-02-11] MEDS ORDERED: RENACIDIN IRRIG30 ML IRRIG (16:56)
[2020-02-11 19:40] VITALS: BP 151/89
[2020-02-12 05:32] LABS: CALCIUM 8.1 mg/dL (8.5-10.1); CREATININE 0.8 mg/dL (0.6-1.3); MAGNESIUM 1.8 mg/dL (1.8-2.4); POTASSIUM 3.3 mmol/L (3.5-5.1)
[2020-02-12 08:00] VITALS: BP 126/74
[2020-02-12 17:17] VITALS: BP 139/71
[2020-02-12 20:00] VITALS: BP 163/74
[2020-02-13] VITALS: BP 136/84
[2020-02-13 08:00] VITALS: BP 145/102
[2020-02-13 11:30] VITALS: BP 136/96
[2020-02-13 16:18] VITALS: BP 125/77
[2020-02-13 18:53] LABS: URINE BLOOD 3+ (Negative); URINE CLARITY CLEAR; URINE COLOR YELLOW; URINE GLUCOSE-RANDOM NEGATIVE (Negative); URINE KETONES NEGATIVE (Negative); URINE LEUKOCYTES-REFLEX NEGATIVE (Negative); URINE NITRITE-REFLEX NEGATIVE (Negative); URINE PROTEIN TRACE (Negative); URINE SPECIFIC GRAVITY 1.015 (1.005-1.030); URINE UROBILINOGEN 0.2 E.U./dl (0.2-1.0)
[2020-02-13 18:56] LABS: URINE BILIRUBIN 1+ (Negative)
[2020-02-13 18:58] LABS: BACTERIA-REFLEX 1-9 Few /HPF (None Seen); CASTS None Seen /LPF (None Seen); CRYSTALS None Seen /LPF (None Seen); SQUAMOUS 0-3 Few /LPF (0-3); URINE RBC 3-10 Few /HPF (0-2); URINE WBC-REFLEX 0-5 Rare /HPF (0-5)
[2020-02-13 19:00] LABS: ICTOTEST (BILI CONFIRMATORY) Negative (Negative)
[2020-02-13 20:00] VITALS: BP 145/84
[2020-02-14 07:56] VITALS: BP 129/74
[2020-02-14 16:24] VITALS: BP 125/80
[2020-02-14 20:00] VITALS: BP 134/84
[2020-02-15] VITALS: BP 119/60
[2020-02-15 08:00] VITALS: BP 118/62
[2020-02-15] MEDS ORDERED: FLUCONAZOLE 10100 MG PO (08:25)
[2020-02-15] MEDS ORDERED: FLORANEX TABLE1 EACH PO (08:25)
[2020-02-15] MEDS ORDERED: AMOX TR-K CLV1 EAC4 PO (08:25)
[2020-02-15 15:44] VITALS: BP 119/60
== END 2020-02-15 17:05 | disposition home health service (06) | DRG 698 ==
LOC: M.ERS 18:53 → M.TBA-ER 21:06 → M.2W 21:06
PROVIDERS: Family Medicine; Internal Medicine; Personal Emergency Response Attendant; Specialist; ADMIT Internal Medicine; ATTEND Internal Medicine
DX: T83.510A Infection and inflammatory reaction due to cystostomy catheter, initial encounter (principal); A41.81 Sepsis due to Enterococcus; G93.41 Metabolic encephalopathy; N39.0 Urinary tract infection, site not specified; D68.59 Other primary thrombophilia; Q60.0 Renal agenesis, unilateral; I69.351 Hemiplegia and hemiparesis following cerebral infarction affecting right dominant side; Z16.24 Resistance to multiple antibiotics; E44.0 Moderate protein-calorie malnutrition; L89.309 Pressure ulcer of unspecified buttock, unspecified stage; K21.9 Gastro-esophageal reflux disease without esophagitis; I25.10 Atherosclerotic heart disease of native coronary artery without angina pectoris; Z95.1 Presence of aortocoronary bypass graft; I10 Essential (primary) hypertension; B96.4 Proteus (mirabilis) (morganii) as the cause of diseases classified elsewhere; B95.2 Enterococcus as the cause of diseases classified elsewhere; I48.91 Unspecified atrial fibrillation; L30.8 Other specified dermatitis; Y73.8 Miscellaneous gastroenterology and urology devices associated with adverse incidents, not elsewhere classified; N40.0 Benign prostatic hyperplasia without lower urinary tract symptoms; Z20.828 Contact with and (suspected) exposure to other viral communicable diseases; Y84.6 Urinary catheterization as the cause of abnormal reaction of the patient, or of later complication, without mention of misadventure at the time of the procedure; I69.320 Aphasia following cerebral infarction; Z87.891 Personal history of nicotine dependence; Z79.899 Other long term (current) drug therapy; Y92.89 Other specified places as the place of occurrence of the external cause; Z68.32 Body mass index [BMI] 32.0-32.9, adult; Z91.040 Latex allergy status; Z79.01 Long term (current) use of anticoagulants

== ENCOUNTER 2021-03-03 10:03 | Inpatient (IN) | payer OTHER, MEDICARE ==
[~2021-03-03] VITALS: Ht 182.9 cm; Wt 113.4 kg
--- NOTE | ~2021-03-03 | CON ---
[address] [address] CONSULTATION Name: SUEBRITTNYALFONZO Room: [address] IN M.R.#: [id number] Admission: 03/03/21 Attend Phys: Jhon Wellington MD Discharge: Date of : 43 Report #: [id number] THIS REPORT FOR: cc: [facility] - Clinic physician unknown [facility] - Clinic physician unknown Frankie Maravilla MD ~ DATE OF CONSULTATION: 03/03/2021 HISTORY OF PRESENT ILLNESS: This is a 75-year-old male patient who was seen by me for altered mental status. The patient is unable to provide any history and all the history is from the patient's . She said this patient had a massive stroke in the past and he is aphasic and is right hemiplegic. The patient still lives with his and and the daughter take care of this patient, looks like he needs total care[facility] They have noticed the urine was becoming cloudy and the patient was having some problem with alteration in mental status. She thinks the patient is already better. REVIEW OF SYSTEMS: Positive for stroke in 2016 and looks like it was a massive stroke. He has a suprapubic catheter. Records indicate that he also has a history of atrial fibrillation, but does not look like he is on any anticoagulant. Looks like he is on Eliquis at least in the hospital. He is on Keppra, she did not know the reason he is on Keppra. A 14-point review of system was carried out and it is positive mainly for stroke. He has a PEG tube put in. Now, he has a urinary tract infection. He has a history of electrolyte imbalances. UTI is attributed to his catheter. This was his relevant 14-point review of system. PAST MEDICAL HISTORY: Positive for hiatus hernia. FAMILY HISTORY: Unremarkable. SOCIAL HISTORY: Taken care of by his and the daughter. PHYSICAL EXAMINATION: GENERAL: His examination is very limited. He is aphasic. He does not say anything. He did follow some commands according to the . To me, he did not do much. He is right hemiplegic. This patient does not appear to be in respiratory difficulty. He is having atrial fibrillation, which he has a history of. No respiratory difficulty was noticed. VITAL SIGNS: Blood pressure is 136/60, respirations 22, pulse is 79. LABORATORY DATA: White count is 6.5, platelets 118. CT scan shows a [place] [address] CONSULTATION Name: SUEBRITTNYALFONZO Room: [address] IN [facility]#: [id number] Admission: 03/03/21 Attend Phys: Jhon Wellington MD Discharge: Date of : 43 Report #: [id number] IMPRESSION: This patient has a large left hemispheric cerebrovascular accident, which was probably because of atrial fibrillation and his carotid Doppler is clean. His present mentation is most likely because of urinary tract infection causing encephalopathy. I will suggest taking care of the urinary tract infection. If his symptom continues after that then please contact us and we will be happy to see him back. Thank you very much for this referral. By: 2105 2224Pdmirtiy Maravilla MD /nt
[~2021-03-03 10:03] MED LIST changes: +AMOX TR-K CLV1 EAC4 PO; +FLORANEX TABLE1 EACH PO; +FLUCONAZOLE 10100 MG PO; +RENACIDIN IRRIG30 ML IRRIG
[2021-03-03 10:06] VITALS: BP 103/64
[2021-03-03] MEDS ORDERED: CEFPODOXIME PR200 M1 PO (10:16)
[2021-03-03] MEDS ORDERED: VITAMIN D325 MC1 PO (10:16)
[2021-03-03] MEDS ORDERED: VITAMIN B-121000 MC2 SUBLING (10:17)
[2021-03-03] MEDS ORDERED: FLONASE 0.05%50 MCG NARES (10:18)
[2021-03-03] MEDS ORDERED: TOPROL XL100 MG PO (10:20)
[2021-03-03] MEDS ORDERED: CRESTOR20 MG PO (10:26)
[2021-03-03 10:41] LABS: URINE BILIRUBIN NEGATIVE (Negative); URINE BLOOD 1+ (Negative); URINE CLARITY CLEAR; URINE COLOR YELLOW; URINE GLUCOSE-RANDOM NEGATIVE (Negative); URINE KETONES NEGATIVE (Negative); URINE PROTEIN TRACE (Negative)
[2021-03-03 10:42] LABS: URINE LEUKOCYTES-REFLEX 3+ (Negative); URINE NITRITE-REFLEX POSITIVE (Negative)
[2021-03-03 10:42] LABS: ABSOLUTE EOSINOPHILS 0.2 thou/uL (0.0-0.7); ABSOLUTE LYMPHOCYTES 0.8 thou/uL (0.8-5.3); ABSOLUTE MONOCYTES 0.4 thou/uL (0.0-1.2); ABSOLUTE NEUTROPHILS 5.1 thou/uL (1.6-8.1); BASOPHILS 0.3 %; HEMATOCRIT 39.1 % (42.0-52.0); HEMOGLOBIN 13.2 gm/dL (14.0-18.0); LYMPHOCYTES 11.8 %; MCH 31.6 pg (26.0-34.0); MCHC 33.7 g/dL (28.0-37.0); MCV 93.8 fL (80.0-100.0); MONOCYTES 6.3 %; MPV 7.4 fl. (7.2-11.1); NUCLEATED RBCS 0 /100WBC; PLATELET COUNT* 118 thou/uL (150-400); POLYS 78.6 %; RBC 4.17 mil/uL (4.50-6.00); RDW-CV 14.9 % (10.5-14.5); WBC 6.5 thou/uL (4.0-11.0)
[2021-03-03 10:50] LABS: BACTERIA-REFLEX >30 Many /HPF (None Seen); CASTS None Seen /LPF (None Seen); CRYSTALS None Seen /LPF (None Seen); MUCUS 0-3 Light strn/LPF (None Seen); SQUAMOUS 0-3 Few /LPF (0-3); URINE RBC 3-10 Few /HPF (0-2); URINE WBC-REFLEX >25 Many /HPF (0-5)
[2021-03-03 10:50] LABS: CALCIUM 8.3 mg/dL (8.5-10.1); CREATININE 0.9 mg/dL (0.6-1.3); POTASSIUM 4.1 mmol/L (3.5-5.1)
[2021-03-03 10:55] LABS: ALBUMIN 2.8 g/dL (3.4-5.0); TOTAL BILIRUBIN 0.7 mg/dL (<0.1-1.0); TOTAL PROTEIN 6.6 g/dL (6.4-8.2)
--- NOTE | 2021-03-03 16:10 | EKG ---
[place] [address] ELECTROCARDIOGRAM REPORT Name: ISABELAALFONZO Room: [place] [address] ADM IN 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 : 1945 Requested By: Katya Hernandez Order Number: [id number] MD: Leonides Chapman Measurements Intervals [place] Rate: 69 P: [place]: QRS: -18 QRSD: 104 T: 242 QT: 424 QTc: 455 Interpretive Statements Atrial fibrillation Borderline left axis deviation Abnrm T, consider ischemia, anterolateral lds Compared to ECG 02/09/2020 18:56:05 No significant changes Electronically Signed On 03-03-2021 16:10:34 CDT by Leonides Chapman [email or web address] <ELECTRONICALLY SIGNED> By: Leonides Chapman MD, [facility] 03/03/21 1610 1012 1012 Leonieds Chapman MD, [facility] /EPI
--- NOTE | 2021-03-03 17:21 | 2DMMODE ---
[place] [address] 2 D/M-MODE ECHOCARDIOGRAM Name: SUEBRITTNYALFONZO Robson Room: [place] [address] ADM IN [facility].#: [id number] Admission: 03/03/21 Attend Phys: Jhon Wellington, Discharge: Date of : 43 Date of Service: 03/03/21 1720 Report #: [id number] THIS REPORT FOR: cc: [facility] - Clinic physician unknown [facility] - Clinic physician unknown Jorge Luis Park MD [facility] ~ APPROVED REPORT Study performed: 03/03/2021 16:22:26 EXAM: Comprehensive 2D, Doppler, and color-flow Echocardiogram Patient Location: In-Patient Room #: er Status: routine BSA: 2.34 HR: 64 bpm BP: 124/63 mmHg Rhythm: Atrial Fibrillation Other Information Study Quality: Good Indications Atrial Fibrillation edema 2D Dimensions Aortic Root: 35.79 mm Volumes Left Atrial Volume (Systole) LA ESV Index: 35.60 mL/m2 Aortic Valve AoV Peak Michael.: 0.75 m/s AO Peak Gr.: 2.23 mmHg LVOT Max P.22 mmHg AO Mean Gr.: 1.32 mmHg LVOT Mean P.59 mmHg LVOT Max V: 0.55 m/s AO V2 VTI: 16.58 cm LVOT Mean V: 0.35 m/s LVOT V1 VTI: 15.76 cm Pulmonary Valve PV Peak Michael.: 0.62 m/s PV Peak Gr.: 1.[address] [address] 2 D/M-MODE ECHOCARDIOGRAM Name: ALFONZO MAR Room: [address] IN [facility]#: [id number] Admission: 03/03/21 Attend Phys: Jhon Wellington, Discharge: Date of : 43 Date of Service: 03/03/21 1720 Report #: [id number] Tricuspid Valve RAP Estimate: 5.00 mmHg TR Peak Gr.: 30.24 mmHg RVSP: 35.00 mmHg PA Pressure: 35.00 mmHg Left Ventricle The left ventricle is normal size. There is normal LV segmental wall motion. There is normal left ventricular wall thickness. Left ventricular systolic function is normal. LVEF is 60-65%. This study is not technically sufficient to allow evaluation of the LV diastolic function due to atrial fibrillation. Right Ventricle The right ventricle is normal size. The right ventricular systolic function is normal. Atria Left atrium is mildly dilated. The right atrium size is normal. Aortic Valve The aortic valve is normal in structure. No aortic regurgitation is present. There is no aortic valvular stenosis. Mitral Valve There is mitral annular calcification. Mild mitral regurgitation. No evidence of mitral valve stenosis. Tricuspid Valve The tricuspid valve is normal in structure. Mild tricuspid regurgitation. Mild pulmonary hypertension. The RVSP is 35-40 mmHg. Pulmonic Valve The pulmonary valve is normal in structure. There is no pulmonic valvular regurgitation. Great Vessels The aortic root is normal in size. IVC is not well visualized. Pericardium There is no pericardial effusion. <Conclusion> The left [place] [address] 2 D/M-MODE ECHOCARDIOGRAM Name: ALFONZO MAR Room: [address] IN [facility].#: [id number] Admission: 03/03/21 Attend Phys: Jhon Wellington, Discharge: Date of : 43 Date of Service: 03/03/211719 Report #: [id number] There is normal left ventricular wall thickness. Left ventricular systolic function is normal. LVEF is 60-65%. Mild tricuspid regurgitation. Mild pulmonary hypertension. The RVSP is 35-40 mmHg. Mild mitral regurgitation. <ELECTRONICALLY SIGNED> By: Jorge Luis Park MD, FACC 03/03/211719 19 19 Jorge Luis Park MD, FACC /INF
[2021-03-03 17:41] VITALS: BP 121/75
[2021-03-03 18:03] VITALS: BP 114/75
[2021-03-03 19:58] VITALS: BP 136/60
[2021-03-04 00:50] VITALS: BP 140/91
[2021-03-04 04:24] VITALS: BP 117/67
[2021-03-04 04:45] LABS: ABSOLUTE EOSINOPHILS 0.1 thou/uL (0.0-0.7); ABSOLUTE LYMPHOCYTES 0.7 thou/uL (0.8-5.3); ABSOLUTE MONOCYTES 0.7 thou/uL (0.0-1.2); ABSOLUTE NEUTROPHILS 7.6 thou/uL (1.6-8.1); BASOPHILS 0.2 %; EOSINOPHILS 1.1 %; HEMATOCRIT 42.4 % (42.0-52.0); HEMOGLOBIN 14.4 gm/dL (14.0-18.0); LYMPHOCYTES 7.9 %; MCH 31.7 pg (26.0-34.0); MCHC 33.9 g/dL (28.0-37.0); MCV 93.6 fL (80.0-100.0); MPV 7.7 fl. (7.2-11.1); NUCLEATED RBCS 0 /100WBC; PLATELET COUNT* 117 thou/uL (150-400); POLYS 82.8 %; RBC 4.53 mil/uL (4.50-6.00); RDW-CV 15.1 % (10.5-14.5); WBC 9.2 thou/uL (4.0-11.0)
[2021-03-04 05:00] LABS: CALCIUM 8.6 mg/dL (8.5-10.1); CREATININE 0.7 mg/dL (0.6-1.3); POTASSIUM 4.3 mmol/L (3.5-5.1)
[2021-03-04 05:21] LABS: CHOLESTEROL 90 mg/dL (<200); HDL CHOLESTEROL 40 mg/dL (>40); LDL CHOLESTEROL 38 mg/dL (<100); TC:HDL 2.3 Ratio (Not establshd); TRIGLYCERIDE 60 mg/dL (<150); VLDL 12 mg/dL (<40)
[2021-03-04 05:23] LABS: SERUM ASSESSMENT CLEAR
[2021-03-04 11:57] VITALS: BP 97/53
[2021-03-04 19:03] VITALS: BP 119/69
[2021-03-04 20:15] VITALS: BP 137/83
[2021-03-05 02:06] LABS: GLYCOHEMOGLOBIN (HGB A1C) 5.3 % (4.8-5.6)
[2021-03-05 04:03] VITALS: BP 138/75
[2021-03-05 05:02] LABS: ABSOLUTE EOSINOPHILS 0.1 thou/uL (0.0-0.7); ABSOLUTE LYMPHOCYTES 0.7 thou/uL (0.8-5.3); ABSOLUTE MONOCYTES 0.6 thou/uL (0.0-1.2); ABSOLUTE NEUTROPHILS 5.3 thou/uL (1.6-8.1); BASOPHILS 0.6 %; EOSINOPHILS 2.1 %; HEMATOCRIT 38.1 % (42.0-52.0); HEMOGLOBIN 13.2 gm/dL (14.0-18.0); LYMPHOCYTES 10.9 %; MCH 31.8 pg (26.0-34.0); MCHC 34.6 g/dL (28.0-37.0); MCV 91.8 fL (80.0-100.0); MONOCYTES 8.2 %; MPV 7.9 fl. (7.2-11.1); NUCLEATED RBCS 0 /100WBC; PLATELET COUNT* 116 thou/uL (150-400); POLYS 78.2 %; RBC 4.14 mil/uL (4.50-6.00); RDW-CV 14.8 % (10.5-14.5); WBC 6.8 thou/uL (4.0-11.0)
[2021-03-05 05:41] LABS: CALCIUM 8.4 mg/dL (8.5-10.1); CREATININE 0.6 mg/dL (0.6-1.3); POTASSIUM 3.9 mmol/L (3.5-5.1)
[2021-03-05 12:00] VITALS: BP 153/87
[2021-03-05] MEDS ORDERED: CEFUROXIME500 MG PO (13:05)
[2021-03-05 13:24] VITALS: BP 153/87
[2021-03-05 14:31] VITALS: BP 153/87
== END 2021-03-05 16:15 | disposition home health service (06) | DRG 698 ==
LOC: M.ERS 10:03 → M.TBA-ER 12:20 → M.2W 12:20 → M.3W 18:38 → M.2W 22:08
PROVIDERS: Nurse Practitioner Family; ADMIT Internal Medicine; ATTEND Internal Medicine
DX: T83.511A Infection and inflammatory reaction due to indwelling urethral catheter, initial encounter (principal); G93.41 Metabolic encephalopathy; R53.2 Functional quadriplegia; R65.11 Systemic inflammatory response syndrome (SIRS) of non-infectious origin with acute organ dysfunction; N30.01 Acute cystitis with hematuria; E87.1 Hypo-osmolality and hyponatremia; I69.351 Hemiplegia and hemiparesis following cerebral infarction affecting right dominant side; N32.0 Bladder-neck obstruction; I48.91 Unspecified atrial fibrillation; I10 Essential (primary) hypertension; K21.9 Gastro-esophageal reflux disease without esophagitis; I25.10 Atherosclerotic heart disease of native coronary artery without angina pectoris; E86.0 Dehydration; Z20.822 Contact with and (suspected) exposure to COVID-19; Z79.899 Other long term (current) drug therapy; Z79.01 Long term (current) use of anticoagulants; Z88.8 Allergy status to other drugs, medicaments and biological substances; Z91.040 Latex allergy status; Z87.891 Personal history of nicotine dependence

== ENCOUNTER 2021-04-12 20:33 | Emergency (ER) | payer OTHER, MEDICARE ==
[~2021-04-12] VITALS: Ht 182.9 cm; Wt 102.2 kg
[~2021-04-12 20:33] MED LIST changes: +CEFPODOXIME PR200 M1 PO; +CEFUROXIME500 MG PO; +CRESTOR20 MG PO; +VITAMIN B-121000 MC2 SUBLING; +VITAMIN D325 MC1 PO
[2021-04-12 21:08] LABS: ABSOLUTE EOSINOPHILS 0.2 thou/uL (0.0-0.7); ABSOLUTE LYMPHOCYTES 0.9 thou/uL (0.8-5.3); ABSOLUTE MONOCYTES 0.6 thou/uL (0.0-1.2); ABSOLUTE NEUTROPHILS 4.3 thou/uL (1.6-8.1); BASOPHILS 0.5 %; EOSINOPHILS 4.1 %; HEMATOCRIT 40.6 % (42.0-52.0); HEMOGLOBIN 13.2 gm/dL (14.0-18.0); LYMPHOCYTES 14.7 %; MCH 30.4 pg (26.0-34.0); MCHC 32.5 g/dL (28.0-37.0); MCV 93.5 fL (80.0-100.0); MONOCYTES 9.3 %; MPV 7.6 fl. (7.2-11.1); NUCLEATED RBCS 0 /100WBC; PLATELET COUNT* 110 thou/uL (150-400); POLYS 71.4 %; RBC 4.34 mil/uL (4.50-6.00); RDW-CV 15.5 % (10.5-14.5)
[2021-04-12 21:18] LABS: CALCIUM 8.4 mg/dL (8.5-10.1); CREATININE 0.8 mg/dL (0.6-1.3); POTASSIUM 3.9 mmol/L (3.5-5.1)
[2021-04-12 21:23] LABS: ALBUMIN 2.6 g/dL (3.4-5.0); MAGNESIUM 1.9 mg/dL (1.8-2.4); TOTAL BILIRUBIN 0.6 mg/dL (<0.1-1.0); TOTAL PROTEIN 6.5 g/dL (6.4-8.2)
[2021-04-12 21:53] LABS: URINE BILIRUBIN NEGATIVE (Negative); URINE BLOOD 3+ (Negative); URINE CLARITY CLEAR; URINE COLOR YELLOW; URINE GLUCOSE-RANDOM NEGATIVE (Negative); URINE KETONES NEGATIVE (Negative); URINE PROTEIN NEGATIVE (Negative); URINE SPECIFIC GRAVITY 1.025 (1.005-1.030)
[2021-04-12 22:01] LABS: URINE LEUKOCYTES-REFLEX 2+ (Negative); URINE NITRITE-REFLEX POSITIVE (Negative)
[2021-04-12 22:02] LABS: MUCUS 0-3 Light strn/LPF (None Seen); SQUAMOUS 0-3 Few /LPF (0-3); WBC CASTS 0-3 /LPF
[2021-04-12 22:03] LABS: BACTERIA-REFLEX >30 Many /HPF (None Seen); CRYSTALS None Seen /LPF (None Seen); URINE WBC-REFLEX >25 Many /HPF (0-5)
[2021-04-13 00:15] VITALS: BP 114/68
--- NOTE | 2021-04-13 17:44 | EKG ---
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: : 1945 Requested By: Alissa Messina Order Number: [id number] MD: Jorge Luis Park Measurements Intervals [place] Rate: 74 P: [place]: QRS: -14 QRSD: 97 T: 253 QT: 458 QTc: 509 Interpretive Statements Atrial fibrillation Abnormal R-wave progression, early transition Abnrm T, consider ischemia, anterolateral lds Prolonged QT interval Compared to ECG 03/03/2021 10:12:25 Prolonged QT interval now present Possible ischemia still present Electronically Signed On 04-13-2021 17:44:29 CDT by Jorge Luis Park [email or web address] <ELECTRONICALLY SIGNED> By: Jorge Luis Park MD, FACC 04/13/21 1744 44 44 Jorge Luis Park MD, FACC /EPI
== END 2021-04-13 00:15 | disposition short-term general hospital (02) ==
LOC: M.ERS 20:33
PROVIDERS: Personal Emergency Response Attendant
DX: N39.0 Urinary tract infection, site not specified (principal); Z20.822 Contact with and (suspected) exposure to COVID-19; R60.0 Localized edema; R41.82 Altered mental status, unspecified; R47.01 Aphasia; Z86.73 Personal history of transient ischemic attack (TIA), and cerebral infarction without residual deficits; I10 Essential (primary) hypertension; I48.91 Unspecified atrial fibrillation; K21.9 Gastro-esophageal reflux disease without esophagitis; Z90.5 Acquired absence of kidney; Z79.899 Other long term (current) drug therapy; Z88.8 Allergy status to other drugs, medicaments and biological substances; Z91.040 Latex allergy status